=== PATIENT | male | born 1975 | race Caucasian/White ===

== ENCOUNTER → 2024-10-31 16:53 | Outpatient (REF) | payer OTHER, SELFPAY | LOC: RAD 16:53 | PROVIDERS: ATTENDING PHYSICIAN Thoracic Surgery (Cardiothoracic Vascular Surgery); FAMILY PHYSICIAN Family Medicine | DX: I35.0 Nonrheumatic aortic (valve) stenosis (principal); Z01.818 Encounter for other preprocedural examination | CPT/HCPCS: 75573; Q9967 ==

== ENCOUNTER 2024-11-25 07:49 | Day surgery (SDC) | payer OTHER, SELFPAY ==
[2024-11-25] VITALS (9 sets, daily range): BP systolic 134–160; BP diastolic 89–102; BMI 33.6
--- NOTE | 2024-11-25 10:04 | ITS.CL.PN ---
Case Consultant - Procedure Note
Procedure
Procedure Note:
CARDIAC CATHETERIZATION REPORT
Date of Procedure: 11/25/24
Referring: Dr. Consuelo Chau MD
Indication: pre-operative assessment before cardiac surgery
PROCEDURE(S)
1. coronary angiography
ACCESS: 6F left radial artery (closure: radial band; note: right radial artery is occluded)
CATHETERS
1. 6F JR4
2. 6F JL4
MODERATE SEDATION: 25 minutes of moderate sedation was utilized. An independent medical services assistant was present to assist with and help manage the patient's level of consciousness and physiologic status.
CORONARY ANGIOGRAPHY
Dominance: right
LM: large, normal
LAD: large vessel giving rise to large D1/ramus, small D2, and moderate caliber D3. There is no CAD.
LCx: large vessel giving rise to a moderate caliber OM1, large OM2, and large LPL branch. There is no CAD.
RCA: large vessel giving rise to a small RPDA and small RPL branch. There is no CAD.
RADIATION: dose 424 mGy; DAP 35 Gy*cm2; fluoroscopy time 3.6 min
CONCLUSIONS
1. no coronary artery disease in a right dominant system
RECOMMENDATIONS
1. proceed with AVR/root replacement
2. primary prevention of CAD
Copy to: Dr. Costa Chau MD (cardiac surgeon)
Signed: Bartolo Valdivia MD, PhD
== END 2024-11-25 13:00 | disposition home or self-care (01) ==
LOC: CATH 07:49
PROVIDERS: ATTENDING PHYSICIAN Student in an Organized Health Care Education/Training Program; FAMILY PHYSICIAN Family Medicine; OTHER PHYSICIAN Internal Medicine Interventional Cardiology
DX: Z01.818 Encounter for other preprocedural examination (principal); I35.0 Nonrheumatic aortic (valve) stenosis; I10 Essential (primary) hypertension; G25.81 Restless legs syndrome
CPT/HCPCS: 99152; 99153; 93454; 93458; C1894; Q9967

== ENCOUNTER 2024-11-29 05:01 | Inpatient (IN) | payer OTHER, SELFPAY ==
[2024-11-18 08:32] VITALS: BMI 34.2
[2024-11-18 09:09] LABS: Hematocrit 40.8 % (39.0-52.0); Hemoglobin 14.4 g/dL (13.0-18.0); Mean Corp Hgb Conc. 35.3 g/dL (33.0-37.0); Mean Corpuscular Volume 88.9 fL (80.0-94.0); Nucleated Red Blood Cells % 0 % (-); Platelet Count 220 10^3/uL (130-400); Red Cell Dist. Width 11.9 % (11.5-14.5)
[2024-11-18 09:17] LABS: INR 1.00; PT 13.5 Sec (11.4-14.6)
[2024-11-18 09:46] LABS: ALT (SGPT) 34 U/L (0-50); AST (SGOT) 32 U/L (17-59); Albumin 4.6 g/dl (3.5-5.0); Alkaline Phosphatase 61 U/L (38-126); Blood Urea Nitrogen 18 mg/dl (9-20); Calcium 9.5 mg/dl (8.4-10.2); Carbon Dioxide 25 mmol/L (22-30); Chloride 103 mmol/L (98-107); Estimated Creatinine Clearance > 125 ml/min; Glucose 105 mg/dl (70-99); Potassium 4.4 mmol/L (3.5-5.1); Sodium 140 mmol/L (135-145); Total Protein 8.0 g/dl (6.3-8.2); eGFR > 60.00
[2024-11-18 09:56] LABS: Glycohemoglobin (HgbA1c) 5.2 % (4.0-5.6)
[2024-11-18 10:32] LABS: Urine Character Clear (Clear)
[2024-11-18 10:48] LABS: Urine Urothelial Cell 0-2 /LPF (FEW)
[2024-11-18 10:50] LABS: Urine Red Blood Cell 0-2 /HPF (0-2)
--- NOTE | 2024-11-18 11:13 | CM ---
spoke to pt in PAT's, we discussed preop AVR teaching including [place] restrictions. he is previndep, lives with his in a 2 story home with 10 steps to enter. he denies any dme's. he has the cardiac surgery educ book, soap and
instructions. he is agreeable to a f/u visit form the ct transitional care nurses after dc. plan is for AVR 11/29, cm role explained and all questions answered.
[2024-11-29 05:16] VITALS: BMI 32.6
[2024-11-29 05:17] VITALS: BP 151/103
[2024-11-29] MEDS: MAGNESIUM OXIDE 500 MG PO (05:24)
[2024-11-29] MEDS: PROTONIX 40 MG PO (05:24)
[2024-11-29] MEDS: BACTROBAN 2% OINTMENT 1 APPLIC NASAL ×2 (05:25→20:22)
[2024-11-29] MEDS: LOPRESSOR 25 MG PO (05:25)
--- NOTE | 2024-11-29 06:00 | PTCARENOTE ---
admitted pt into 2260. pt confirmed 2 CHG showers at home and NPO status since midnight. ABO obtained. VS completed. Admission questions and med rec completed. pt clipped and washed w/ CHG wipes. awating CVOR.
--- NOTE | 2024-11-29 06:40 | W.CVOR.SURPR ---
CVOR Surgeon Immed Pre Op
-
I have examined this patient prior to performance of the scheduled procedure.
The patient's condition is unchanged from the time of the dictated/written History and
Physical and the patient is able to undergo the scheduled procedure.
We had a long discussion to review valve types this morning. Shared decision making at this point was to pursue a mechanical valve.
Sternotomy AVR + Asc
--- NOTE | 2024-11-29 07:50 | CM ---
Reviewed chart. Mr. Dailey is in the operating room today. Prior to admission he resides with his spouse in a two story home with ten steps to enter. Prior to admission he was independent with ambulation and adls. He does not have any DME in the
home. He has a prescription plan. Medical work-up in progress. The discharge plan is toreturn home with his spouse with a home visit by the Transitional Care Nurse verses [facility] if indicated when medically stable.
[2024-11-29 07:54] LABS: ACT+ - POC 112 Seconds (82-134)
[2024-11-29 08:03] LABS: Urine Character Clear (Clear)
[2024-11-29 08:09] LABS: Urine Squamous Cell 0-2 /LPF (Few)
[2024-11-29 08:10] LABS: Urine Red Blood Cell 0-2 /HPF (0-2); Urine White Cell 0-2 /HPF (0-5)
[2024-11-29 08:35] LABS: ACT+ - POC 535 Seconds (82-134)
[2024-11-29 08:50] LABS: B.E. - POC 0.2 mmol/L; Glucose - POC 100 mg/dl (70-99); HCO3 - POC 25 mmol/L (21-28); Hematocrit - POC 35 % PCV (42-52); Hemodilution- POC No; Hemoglobin Calculated - POC 12.0; Ionized Calcium - POC 1.18 mmol/L (1.15-1.33); Lactate - POC 1.45 mmol/L (0.36-0.75); O2 Saturation %Calculated-POC 99.6 % (94-98); PCO2 - POC 42 mmHg (35-48); PO2 - POC 185 mmHg (83-108); POC Comment PRE; Potassium - POC 3.8 mmol/L (3.5-5.1); Sodium - POC 141 mmol/L (136-145); Specimen Type - POC Arterial; pH - POC 7.39 (7.35-7.45)
[2024-11-29 09:01] LABS: ACT+ - POC 549 Seconds (82-134)
[2024-11-29 09:30] LABS: B.E. - POC 4.6 mmol/L; Glucose - POC 113 mg/dl (70-99); HCO3 - POC 30 mmol/L (21-28); Hematocrit - POC 27 % PCV (42-52); Hemodilution- POC Yes; Hemoglobin Calculated - POC 9.2; Ionized Calcium - POC 1.05 mmol/L (1.15-1.33); Lactate - POC 1.21 mmol/L (0.36-0.75); O2 Saturation %Calculated-POC 100.0 % (94-98); PCO2 - POC 48 mmHg (35-48); PO2 - POC 412 mmHg (83-108); POC Comment CPB A; Potassium - POC 4.6 mmol/L (3.5-5.1); Sodium - POC 141 mmol/L (136-145); Specimen Type - POC Arterial; pH - POC 7.40 (7.35-7.45)
[2024-11-29 09:42] LABS: ACT+ - POC 496 Seconds (82-134)
[2024-11-29] MEDS: ANCEF 10 IV ×2 (10:00→13:23)
[2024-11-29 10:06] LABS: B.E. - POC 2.9 mmol/L; Glucose - POC 185 mg/dl (70-99); HCO3 - POC 29 mmol/L (21-28); Hematocrit - POC 35 % PCV (42-52); Hemodilution- POC Yes; Hemoglobin Calculated - POC 11.7; Ionized Calcium - POC 1.10 mmol/L (1.15-1.33); Lactate - POC 1.41 mmol/L (0.36-0.75); O2 Saturation %Calculated-POC 99.9 % (94-98); PCO2 - POC 49 mmHg (35-48); PO2 - POC 279 mmHg (83-108); POC Comment WARM; Potassium - POC 4.9 mmol/L (3.5-5.1); Sodium - POC 142 mmol/L (136-145); Specimen Type - POC Arterial; pH - POC 7.38 (7.35-7.45)
[2024-11-29 10:09] LABS: ACT+ - POC 109 Seconds (82-134)
--- NOTE | 2024-11-29 10:16 | W.PN.CD ---
Addendum entered and electronically signed by Stephen Lee MD 11/29/24 13:20:
Patient seen and examined in collaboration with COMMERCIAL LOAN COLLECTION OFFICER; agree with below.
- Stable status-post mechanical AVR and ascending aorta replacement today.
- child monitor.
- Postsurgical care as per CT Surgery.
- Will follow.
Original Note:
Today's Communication / Plan
-
Follow telemetry
Postoperative management per CT surgery
Impression / Plan
-
I/P: 48M with bicuspid aortic valve with AI, hypertension, & lumbar disc disease presents for sternotomy AVR with ascending aortic replacement
Outpatient radiology assistant: Dr. Mark Russo
Bicuspid aortic valve with severe aortic stenosis and ascending aorta 4.5 cm s/p SAVR [25 mm mechanical aortic valve] & AscAo replacement [30 mm straight tube graft] by Dr. Chau 11/29/2024
- Pre-LVEF 65%, post LVEF hyperdynamic at 65-70% without RWMA
- Post MG 11 mmHg
- No inotropes, no products
- Postop EKG sinus bradycardia, rate 58
- In sinus rhythm, follow telemetry
- Antibiotic prophylaxis education prior to discharge
Hypertension
- Follow in the postoperative setting, he was not on any agents preoperatively
Fasting hyperglycemia, HgbA1c 5.2%
SUBJECTIVE:
Intubated and sedated. Operative report reviewed.
DATA:
Transthoracic echocardiogram, 10/19/2024:
Suboptimal due to poor acoustic windows overall, there is normal left
ventricular systolic function with an ejection fraction of 60 to 65% with grade
1 diastolic dysfunction. Normal chamber sizes. Aortic valve is thickened,
calcified and restricted appears bicuspid with a mean gradient of 55.8 mmHg and
a peak gradient of 73.5 mmHg with a calculated aortic valve area 0.72 cm sq.
These findings are consistent with severe aortic stenosis. There is no aortic
regurgitation. There is trace mitral and tricuspid regurgitation. No
pulmonary hypertension. No pericardial effusion.
Cardiac catheterizationn 11/22/2024:
1. No coronary artery disease in a right dominant system.
Physical Exam
Vital Signs/Labs
Vital Signs
Temp Pulse Resp BP Pulse Ox
98.9 F 85 20 151/103 97
11/29/24 05:17 11/29/24 05:17 11/29/24 05:17 11/29/24 05:17 11/29/24 05:17
11/28/24 11/29/24 11/30/24
06:59 06:59 06:59
Actual Weight 108.9 kg
PT 13.5 Sec (11.4-14.6) 11/18/24 08:59
INR 1.00 11/18/24 08:59
Physical Exam
Constitutional: No acute distress and Comfortable
EENT: Anicteric and Moist mucous membranes
Cardiovascular: Rhythm & rate is regular, Pedal edema is absent and S1S2 is normal
Respiratory: Lungs clear to auscul. and Other (ETT to mechanical ventilator)
GI: Soft and Distention absent
Neuro/Psych: Other (Sedated)
Other: Skin (Warm and dry)
Data Reviewed
-
Date of Service: November 29, 2024
EKG: Report Reviewed by me
Medical Tests (PFT, Pathology etc): Report Reviewed by me
Labs: Labs Reviewed by me
Old Records: Reviewed
--- NOTE | 2024-11-29 10:35 | W.PN.CT.SURG ---
CT Surgery Operative Note
-
CARDIAC SURGERY OPERATIVE REPORT
Preoperative Diagnosis: Aortic valve stenosis with bicuspid morphology and associated aortic aneurysm of the ascending thoracic aorta
Postoperative Diagnosis: Same
Procedure(s) Performed:
1. Standard sternotomy with aortic and right atrial cannulation
2. Surgical aortic valve replacement [25 mm mechanical aortic valve]
3. Ascending aortic replacement [30 mm straight tube graft]
4. Transesophageal echocardiography
5. Placement of temporary ventricular pacing wire
Date of Surgery: 11/29/24
Comorbidities:
1. Bicuspid aortic valve morphology, type II
2. Severe aortic valve stenosis, symptomatic
3. Associated ascending aortic aneurysm, without rupture
4. Hypertension
5. Restless leg syndrome
Attending Surgeon: Costa Chau MD, MS
Assistants: Gerri Gutiérrez PA-C (present and necessary to automobile mechanic assistant, retraction, suction, exposure, suture management, and wound closure under my direction)
Anesthesiology: Charly Dos Santos MD and Stas Lawson CRNA
Scrub and Circulating RNs: Francis Valadez RN, Kaela Sherman RN
Transportation Security Officer: Thomas Lopez CCP
Anesthesia: GETA
EBL: per perfusion records
Products: None
CPB Time: 78 minutes
Aortic Cross Clamp Time: 64 minutes
Indication(s) for Procedures: This is a 49-year-old male with a history of bicuspid aortic valve morphology was recently found to have severe aortic valve stenosis. He was also found to have an associated ascending aortic aneurysm measuring 4.5 cm.
Given the severity and elevated gradients to approximately 55 across his aortic valve, we discussed surgical intervention. He opted to move forward with SAVR and ascending aortic replacement. His valve choice on the day of surgery was mechanical
prosthesis.
Aortic Valve Description: Type II, left right fusion, left and right coronary ostia normal anatomic positions and high up in the sinuses. Most of the calcification was towards the right left raphae that was very bulky.
Findings: His left ventricular ejection fraction preoperatively was normal at 65%. He had some diastolic dysfunction mild to moderate degree of left ventricular hypertrophy as expected. Following surgery he was hyperdynamic with an EF of
approximately 65 to 70% with no new regional wall motion abnormalities. His aortic valve is heavily calcified and a type II bicuspid morphology with left and right coronary cusp fusion. He was debrided accordingly and then sized to a 25 mm
mechanical prosthesis. A total of 14 nonpledgeted 2 Ethibond sutures were placed circumferentially from LVOT through annulus through sewing cuff of the prosthesis. It was then parachuted into place and the valve leaflets were oriented in anatomic
position that was perpendicular to the aorta mitral curtain. I then verified that the leaflets were moving freely and unobstructedly and the annular sutures were then secured to place using core knots. I then used a [employer] sizer to size the STJ
to the [place] aorta. A 30 mm straight tube graft was then chosen. The proximal end was sewn first using bovine pericardium as a gasket and then sealed with a absorbable biological glue. Next I then trimmed the graft as well as the [place] aorta
until a point that it was tapered down. The distal anastomosis was again performed with 4-0 Prolene in a running fashion using bovine pericardium as a gasket and then sealed again with biological absorbable glue. At the conclusion of the case
there was a mean gradient of 11 across mechanical prosthesis values hyperdynamic with a cardiac index of over 2.5. He did not require any inotropic support, I did not require any blood products, and he was in his [place] sinus rhythm in the 50s.
ASHLEY revealed that the valve leaflets are moving unobstructedly and the washing jets within normal anatomic positions on the device. There is no obvious paravalvular leak.
Specimen(s): Aortic valve leaflets, ascending aortic aneurysm.
Prosthesis:
1. 25 mm On-X mechanical aortic valve, serial number [id number]
2. 30 mm Hemashield [place] ira straight tube graft, serial #[id number]
3. Single gold X plate with 4 x 16 mm screws
Description of Procedure: The patient was taken to the operating room. Their identity and procedure to be performed were verified and they were positioned supine on the operating table. Induction via general anesthesia with endotracheal intubation
was performed and central venous access and arterial monitoring were inserted. A preoperative transesophageal echocardiogram was performed to assess cardiac function and valvular function. The patient was then prepped and draped from chin to feet in
a sterile fashion. A preoperative time-out was performed with all members of the team present. A midline chest incision was performed along with median sternotomy. The innominate vein was isolated. Full heparinization was given (a total of 55,000
units). We created a pericardial well. The aortic cannulation site was chosen where it was soft, pliable, and free of calcium. Cannulation was performed with an arterial cannula in the ascending aorta and a triple-stage venous cannula through the
right atrial appendage. The arterial cannula line had an appropriate bounce and correlating pressures with test dosing. Next, a root vent/antegrade cannula was inserted into the ascending aorta. The ACT was confirmed to be over 400 and retrograde
autologous priming was performed before commencing cardiopulmonary bypass. The pulmonary artery was away from the aorta to facilitate a clamp site and aortotomy. A left ventricular vent was placed at the right superior pulmonary vein and
secured. The aortic cross-clamp was placed after decreasing the flow on the bypass and mean arterial pressure. A total of 1.2L initial dose of antegrade Del-Nido cardioplegia solution was given and planned for re-dosing every 75 minutes as
necessary. There was rapid electro-mechanical arrest of the heart at 3 cc of cardioplegia. The left ventricle was observed for distention on echocardiogram and manual palpation. Cold slush was placed into a sponge and topically on the RV while we
systemically cooled to 34 degrees centigrade.
Carbon dioxide was used to flood the field. We manually identified the location of the right coronary take off. An aortotomy was made approximately 2cm above the sinotubular junction. The location of both left and right coronary vessels were
visualized in the root.I then fully transected the aorta and placed a stay suture to keep it out of the way. Additional stay sutures were placed at the commissures. The leaflets were excised and sent for pathological assessment. The annulus was
debrided of any calcium being mindful of the annulus and membranous septum. The root and left ventricular outflow tract were thoroughly irrigated to remove any debris. A total of 14 non-pledgeted 2-0 ethibond inverted annular sutures were placed
[id number] circumferentially. These were brought through the sewing cuff of the prosthetic valve which as then parachuted into place. The left and right coronary ostia were visualized and were unobstructed by the valve. I then used a plastic
inside sales director order to make sure the leaflets moved and rotated to the leaflets were oriented perpendicular to the aorta mitral curtain. A Cor-Knot device was used to secure the annular sutures. The valve was inspected and was well seated. The
ascending aortic was then trimmed and then sized at the STJ to a 30 mm graft. The proximal anastomosis was performed with 4-0 Prolene in a running fashion using bovine pericardium as a gasket. Additional hemostatic agent was placed over top of the
suture line. Next I beveled the graft and the [place] aorta accordingly and the distal anastomosis was performed with a single running layer of 4-0 Prolene using bovine pericardium as a gasket. Additional hemostatic agents were placed over top of
the suture lines. An 18-gauge needle was used to gently puncture the graft and the area maneuvers were performed by filling the heart and inflating the lungs. Temporary bipolar ventricular pacing wires were placed on the base of the right
ventricle. The patient was placed in a Trendelenburg position and flows on bypass were lowered. The aortic cross clamp was removed and flows were slowly brought back up. The aortotomy appeared hemostatic. Transesophageal echocardiography revealed
no paravalvular leak and appropriate prosthetic function. Once de-airing was satisfactory, the left ventricular and root vents were removed. After verifying acceptable parameters, we initiated weaning from cardiopulmonary bypass. Once we were off
cardiopulmonary bypass, the venous cannula was clamped and removed. A test dose of protamine was administered and the patient was monitored for any adverse reaction before resuming protamine. Once half of the protamine dose was delivered, pump
suckers were turned off and the systolic blood pressure was lowered for aortic decannulation. The aortic cannula was removed and pursestrings were tied down. All cannulation sites were oversewn with a 4-0 prolene. The aortotomy suture line was
inspected and hemostasis was confirmed. Mediastinal hemostasis was obtained. Two 24Fr Inderjit drains were placed within the pericardium. The sternum was approximated with 4#7 single and 3 #8 double stainless steel wires. A single gold plate was used
to reinforce the manubrial sternal junction. Fascia was approximated with #1 vicryl suture. The subcutaneous, dermis and epidermis were closed in layers in a running fashion. The skin wound was cleansed and dressed.
All instrument, sponge, and needle counts were confirmed to be correct x 2 at the end of the operation. The patient was transferred to the cardiac intensive care unit in critical but stable condition.
I, Dr. Costa Chau, was present, scrubbed for, and performed all critical elements of this procedure.
Costa Chau MD, MS
Cardiothoracic Surgeon
[facility]
This operative dictation was created using the [employer] dictation system. Please excuse any grammatical, typographical, or 'sound alike' errors
[2024-11-29 10:38] LABS: B.E. - POC 0.3 mmol/L; Glucose - POC 138 mg/dl (70-99); HCO3 - POC 25 mmol/L (21-28); Hematocrit - POC 32 % PCV (42-52); Hemodilution- POC Yes; Hemoglobin Calculated - POC 11.0; Ionized Calcium - POC 1.26 mmol/L (1.15-1.33); Lactate - POC 2.39 mmol/L (0.36-0.75); O2 Saturation %Calculated-POC 99.2 % (94-98); PCO2 - POC 40 mmHg (35-48); PO2 - POC 143 mmHg (83-108); POC Comment POST; Potassium - POC 3.9 mmol/L (3.5-5.1); Sodium - POC 141 mmol/L (136-145); Specimen Type - POC Arterial; pH - POC 7.40 (7.35-7.45)
--- NOTE | 2024-11-29 11:00 | PTCARENOTE ---
received patient from cvor, sedated and placed on vent by PERSONNEL COUNSELOR.out with usual lines, CTx2 to -20 wall suction. draining red. no air leaks/crepitus. L brachial A line. #8ETT @24 R lip. pulse ox 96%. weaned fio2 to 60% upon arrival by PERSONNEL COUNSELOR. Out on
cardene precedex and insulin per glycemic protocol. labs drawn and sent. ekg and cxr done. wrapped in warm blankets. updated by Dr Chau. WAI RODRIGUEZ with surgical glue approximated. will continue to monitor.
[2024-11-29 11:09] LABS: Glucose - Point of Care 113 mg/dl (70-99)
[2024-11-29 11:13] LABS: Hematocrit 32.1 % (39.0-52.0); Hemoglobin 11.5 g/dL (13.0-18.0); Platelet Count 198 10^3/uL (130-400)
[2024-11-29 11:15] LABS: B.E. -2.7 mmol/L; HCO3 24.1 mmol/L (21-28); O2 Saturation % 97.0 % (94-98); PCO2 49 mmHg (35-48); PO2 83 mmHg (83-108); Potassium 4.1 mMOL/L (3.5-5.1); Sodium 137 mMOL/L (136-145)
[2024-11-29 11:21] LABS: INR 1.21; PT 15.6 Sec (11.4-14.6)
[2024-11-29 11:22] LABS: APTT 23.4 Sec (23.4-35.0)
[2024-11-29 11:26] LABS: Blood Urea Nitrogen 16 mg/dl (9-20); Estimated Creatinine Clearance > 125 ml/min; Glucose 107 mg/dl (70-99); Magnesium 2.9 mg/dl (1.6-2.3)
--- NOTE | 2024-11-29 11:35 | W.PN.UPDATE ---
Update Note
Progress Note Update
IV fluids: 1600 mL
Crystalloid:� 1200 mL
U.O.:� 550 mL
UF:� 1650 mL
Blood:� None
Wires:� epicardial v-wires - back-up
Inotropes:� none
Pressors:� none
Sedatives:� Precedex at 0.6
�
NEURO: sedated on Precedex, pupils +2 mm B/L
RESP: #8OT @21 cm> 500/60%/14/5. Lungs clear B/L. 2 mediastinal (5 cc on arrival) to -20cm suction without air leak/crepitus. Sanguineous drainage
CV: RRR +S1, S2, no S3, no�rub, no murmur. Dermabond to median sternotomy. RIJ w/[place] locked @ 50 cm. PA 39/23, CVP 20; C.O 4.73/CI 2.1
ABD: round, soft, no BS
EXT: no edema, +2/4 DP pulses B/L, R brachial A-line intact, L wrist ecchymotic/soft/cap refill < 3 sec
: Lovelace with clear yellow urine
�
A/P:
# Aortic stenosis with bicuspid morphology and thoracic ascending aortic aneurysm without rupture
POD #0 s/p AVR (25 mm On-X mechanical) with ascending aortic root replacement (30 mm Hemashield)
ASHLEY: EF�normal
- Maintain SBP to goal of 90-110 mmHg
- Anticipate discontinuation of brachial arterial line if correlating to non-invasive BP
- Plan to initiate Coumadin on evening of POD 1
- wean and extubate
- will need instruction regarding antibiotic prophylaxis for dental and invasive procedures
�
# acute surgical blood loss anemia-expected
- H/H 11.5/40.8 from 14.4/32.1 pre-op
- Ferric Gluconate x 3 doses ordered
- Repeat H/H w Plt in 4-hours, con't to trend CBC
�
# Left wrist hematoma
- suspect hematoma secondary to LHC 11/25/24 via L radial artery
- cap refill < 3 sec
- Continue to monitor in postoperative setting
- if progression or symptoms associated develop, consider vascular consultation
# Hypertension
- Noted PMHx of HTN, not on medicinal regiment
- currently on nicardipine gtt in post-operative setting
- Introduction of BB postoperatively
- Goal SBP 90-110 mmHg immediate post-op
[2024-11-29 12:08] LABS: Glucose - Point of Care 144 mg/dl (70-99)
--- NOTE | 2024-11-29 12:54 | CON.INTV ---
Consultation
Consultation Request
Date/Time Consultation Requested: 11/29/2024
Date/Time Consultation Performed: 11/29/2024
Medical History
-
History of Present Illness:
Patient is a 48 y/o male with known h/o and Ascending aortic aneurysm who was evaluated in the CT surgery clinic for worsening Aortic stenosis. Patient was admitted to the hospital 11/29 for surgical AV replacement and post procedure, was
admitted to CVICU. Car Wash Supervisor consult was requested for further input.
Past medical history. Severe aortic stenosis, hypertension, restless leg syndrome, inguinal hernia, back pain.
Past surgical history. Back surgery, hernia surgery.
Family history. History of coronary artery disease in father, no history of cancer reported.
Social history. Does not smoke. No reported history of marijuana, vaping or e-cigarettes
Allergies / Home Medications
Allergies
Allergy/AdvReac Type Severity Reaction Status Date / Time
fentanyl Allergy Hives Verified 11/16/24 13:38
latex Allergy Hives Verified 11/16/24 13:39
Home Medications
�Medication �Instructions �Recorded �Confirmed �Last Taken �Type
acetaminophen 300 mg-codeine 30 mg 1 tab PO PRN PRN Pain 11/16/24 11/29/24 11/25/24 08:00 History
tablet
etodolac 400 mg tablet 400 mg PO Q12H PRN pain 11/16/24 11/29/24 3 Days Ago History
~11/22/24
magnesium 1 tab PO DAILY 11/16/24 11/29/24 11/26/24 08:00 History
vitamin T35-[id number] acid 1 tab PO DAILY 11/16/24 11/29/24 11/23/24 21:00 History
Review of Systems
-
Hematologic/Lymphatic: Other (Patient just extubated, still a bit drowsy, does not report any discomfort)
Vitals / Labs / Diagnostic Testing
Vital Signs
Temp Pulse Resp BP Pulse Ox
97.3 F 62 16 151/103 96
11/29/24 12:00 11/29/24 12:30 11/29/24 12:30 11/29/24 05:17 11/29/24 12:38
Lab Data
11/29/24 14:30
11/29/24 10:59
Laboratory Results
11/29/24
10:59
PT 15.6 H
INR 1.21
APTT 23.4
pH 7.30 L
pCO2 49 H
pO2 83
HCO3 24.1
O2 Delivery Level
Diagnostic Testing:
Physical Exam
-
HEENT: Normocephalic
Cardiovascular: S1/S2
Respiratory: Clear
GI: Soft and Non Distended
Neurology: Other (Drowsy, extubated minutes ago, wakes up with little stimulation)
Skin: Warm
General: Comfortable
Assessment
-
48-year-old gentleman with severe bicuspid aortic valve stenosis and ascending aortic aneurysm, s/p surgical aortic valve replacement, mechanical, ascending aortic root replacement, POD # 0
Titrated off pressors per protocol, currently on nicardipine infusion at 2.5, MAP of 71
ECHO reviewed with normal EF
PA catheter readings reviewed, 39 x 22, mean 28
Management of chest tubes per primary service, serosanguineous drainage noted, no airleak
Patient extubated to nasal cannula, currently saturating 96% on 4 L
ABG(s) reviewed: .
CXR with no obvious opacities/infiltrates, chest tubes in place
Maintain supplement oxygen as needed
No prior history of pulmonary disease, no h/o smoking
Can add nebulizers if needed
Aspiration precautions
Encouraged incentive spirometry, OOB/ambulation/early mobility
Advance diet as tolerated following extubation
GI prophylaxis: Protonix
SCDs for DVT prophylaxis
Monitor critical I/O's
Lovelace/chest tube output
Hb/platelets postoperatively slight drift. 14.1 > 11.5
Trend CBC for now
Can transfuse if indicated for Hb <7, plt <50 in surgical patients
DVT prophylaxis including SCDs
Insulin protocol initiated and ongoing
Transition to SQ/off as indicated per team
Other medical diagnoses:
- Small area of tree-in-bud nodularity in RUL. Asymptomatic. Can be pursue further as out patient. Pulmonary follow up information left in the chart.
Critical Care time 62 mins -- The patient is admitted for acute critical illness for the treatment of vital organ failure and/or prevention of further life-threatening conditions. Total care includes time spent in review of history, physical exam,
medications, hemodynamic/ventilator parameters, laboratory data, imaging and discussion with house staff, pharmacy, respiratory therapy, organization development consultant, and nursing.
Data:
LHC 11/2024: No CAD in right dominant system.
ECHO 10/2024: Suboptimal due to poor acoustic windows overall, there is normal left
ventricular systolic function with an ejection fraction of 60 to 65% with grade
1 diastolic dysfunction. Normal chamber sizes. Aortic valve is thickened,
calcified and restricted appears bicuspid with a mean gradient of 55.8 mmHg and
a peak gradient of 73.5 mmHg with a calculated aortic valve area 0.72 cm sq.
These findings are consistent with severe aortic stenosis. There is no aortic
regurgitation. There is trace mitral and tricuspid regurgitation. No
pulmonary hypertension. No pericardial effusion.
Cardiac CT 10/2024: Measurements for proposed SAVR procedure, to be added as a separate addendum.
Fusiform aneurysmal dilatation of the ascending thoracic aorta measuring up to 4.5 cm.
Minimal focal infectious/inflammatory bronchiolitis change in the right upper lobe. No dedicated imaging follow-up indicated.
[2024-11-29 13:04] LABS: Glucose - Point of Care 132 mg/dl (70-99)
[2024-11-29 13:10] LABS: B.E. -1.3 mmol/L; HCO3 24.3 mmol/L (21-28); O2 Saturation % 100.0 % (94-98); PCO2 43 mmHg (35-48); PO2 122 mmHg (83-108); Potassium 4.0 mMOL/L (3.5-5.1)
[2024-11-29 13:11] LABS: Hematocrit 34.4 % (39.0-52.0); Hemoglobin 12.4 g/dL (13.0-18.0); Platelet Count 202 10^3/uL (130-400)
--- NOTE | 2024-11-29 13:20 | RESPNOTE ---
Pateint extubated to a 6L nasal cannula following cpap trial and abg. Incentive spirometry reinstruction completed.
--- NOTE | 2024-11-29 13:22 | PTCARENOTE ---
extubated to 6Lnc with JUDICIAL ADMINISTRATIVE ASSISTANT. 96% pulse ox. IS reached 750
[2024-11-29] MEDS: NEURONTIN PO (13:23)
[2024-11-29] MEDS: TYLENOL PO (13:24)
[2024-11-29] MEDS: NSS 500 IV (13:24)
[2024-11-29] MEDS: DILAUDID 0.25 MG IV ×2 (13:37→18:50)
[2024-11-29 14:17] LABS: Glucose - Point of Care 129 mg/dl (70-99)
[2024-11-29 15:00] LABS: Glucose - Point of Care 117 mg/dl (70-99)
[2024-11-29] MEDS: NEURONTIN 100 MG PO ×2 (15:30→21:41)
[2024-11-29] MEDS: LOW STRENGTH ASPIRIN 81 MG PO (15:40)
[2024-11-29] MEDS: ROXICODONE 5 MG PO (15:40)
[2024-11-29] MEDS: PACERONE 200 MG PO ×2 (15:40→21:41)
[2024-11-29 16:17] LABS: Glucose - Point of Care 101 mg/dl (70-99)
--- NOTE | 2024-11-29 18:00 | PTCARENOTE ---
VSS. weaned to 2L nc. see MAR for pain medication administration. IS 500-750. Family updated at bedside.
[2024-11-29 18:42] LABS: Glucose - Point of Care 128 mg/dl (70-99)
[2024-11-29] MEDS: ANCEF 5 IV (18:49)
[2024-11-29 19:43] VITALS: BP 117/60
[2024-11-29 20:00] VITALS: BP 119/67
--- NOTE | 2024-11-29 20:00 | PTCARENOTE ---
Assumed care of patient at 1900. Patient found resting in bed at time of assessment with family at bedside. Patient is AOx4, follows commands appropriately, moves all extremities. Lung sounds are diminished in the bases, saO2 95% on 2L, CTx2:
2xsmeds draining red sanguineous to one atrium. Heart sounds are audible, +click, weak radial pulses, normal palpable DP pulses and no observable edema. V wire is present but wire is insulated. Patient has hypoactive BS in all four quadrants and
there is azevedo draining clear yellow urine. 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 Patient has a R IJ cordis with swan @50cm, R brachial
jessica, and L hand PIV. There is an insulin gtt infusing col 2 as well as Cordis/VIP KVO. Patient given 0.25 dilaudid at change of shift for pain. Call dubon within reach.
[2024-11-29] MEDS: SENOKOT-S 1 TABLET PO (20:22)
[2024-11-29 20:42] LABS: Glucose - Point of Care 114 mg/dl (70-99)
[2024-11-29 21:00] VITALS: BP 126/63
[2024-11-29] MEDS: NITROGLYCERIN PREMIX 250 IV (21:33)
[2024-11-29] MEDS: TYLENOL 1000 MG PO (21:41)
[2024-11-29 22:00] VITALS: BP 118/52
--- NOTE | 2024-11-29 22:00 | PTCARENOTE ---
Patient somewhat hypertensive SBP in 130s with goal SBP<110. Started on cardene at 1999 without much response from patient BP continued to rise into 140s. Switched to nitro gtt at 2099 with much better response from patient. SBP currently 113.
Titrating according to protocol.
[2024-11-29] MEDS: ZOFRAN 4 MG IV (22:25)
[2024-11-29 22:34] LABS: Glucose - Point of Care 102 mg/dl (70-99)
[2024-11-29 23:00] VITALS: BP 124/56
[2024-11-30] VITALS (16 sets, daily range): BP systolic 106–139; BP diastolic 54–80; PULSE 74; O2SAT 94–98; BMI 33.1
--- NOTE | 2024-11-30 | PTCARENOTE ---
Patient reassessed. Remains on nitro gtt for hypertension titrated up to 60 which is max dose per order. [id number]. At approx 2200 patient became nauseous without emesis given one dose of zofran. Desatting to 88-89% at HS increased O2 to 4L. Call
dubon within reach remains in SR.
[2024-11-30] MEDS: LR 250 ML IV (00:27)
[2024-11-30 00:43] LABS: Glucose - Point of Care 108 mg/dl (70-99)
[2024-11-30 02:35] LABS: Glucose - Point of Care 107 mg/dl (70-99)
--- NOTE | 2024-11-30 03:02 | W.PN.CT ---
Today's Communication / Plan
-
-pod #1
-no issues overnight
-sbp 90-[address] Chau - liberate
-CI 2.66, CO 5.98. Drips: Nitro 65, Insulin
-CT outputs: 2 meds 145/315 in 12/24 hrs
-swan dcd
-wean off Nitro and d/c a-line
-d/c insulin
-d/c Lovelace
-current meds (ASA. Amio, Lopressor, iv Iron, Protonix). Plan is to start Coumadin for mechanical valve
-INR 1.10 today
-encourage IS, OOB
Assessment / Plan
-
- Severe symptomatic aortic valve stenosis- s/p Surgical aortic valve replacement [25 mm On-X mechanical aortic valve]; Ascending aortic replacement [30 mm Hemashield [place] straight tube graft] by Dr. Chau on 11/29/24, pod #1
- Bicuspid aortic valve morphology, type II
- Associated ascending aortic aneurysm 4.5 cm, without rupture
- Hypertension
- Restless leg syndrome
- Acute postop blood loss anemia - stable, no transfusions
- Acute postop pulmonary insufficiency/atelectasis
- Acute postop hypovolemia with subsequent hypervolemia
Discussed patient care with: Nursing and Care Team
Subjective
-
Date of Service: November 30, 2024
Objective Data
-
PT 15.6 Sec (11.4-14.6) H 11/29/24 10:59
INR 1.21 11/29/24 10:59
APTT 23.4 Sec (23.4-35.0) 11/29/24 10:59
Vital Signs
Vital Signs
Temp Pulse Resp BP Pulse Ox
99.2 F 81 19 124/54 94
11/30/24 02:05 11/30/24 01:00 11/30/24 01:00 11/30/24 01:00 11/30/24 01:00
CT Intake/Output/Weight
11/29/24 11/29/24 11/30/24
06:59 18:59 06:59
Intake Total 348.8 / 689.0 340.2 / 689.0
Output Total 780 / 1110 330 / 1110
Balance -431.2 / -421.0 10.2 / -421.0
SaO2: 94
Physical Exam
-
General: Awake and AOx3
Cardiovascular: Regular rate & rhythm, No Murmurs and No Rub
Respiratory: Decreased Breath Sounds
Sternum: Stable
Incision: Clean, Dry and Intact
Extremities: No Edema (1+ DPs b/l)
Abdomen : soft, nontender, nondistended, + decreased bowel sounds
Data Reviewed
-
Lab Results: Results Reviewed
Medications: Active Meds Reviewed
Chest X-Ray: Report Reviewed and Image Reviewed
ECG: Report Reviewed and Image Reviewed
[2024-11-30] MEDS: ANCEF 5 IV ×2 (03:04→10:17)
[2024-11-30] MEDS: ROXICODONE 5 MG PO ×3 (03:18→20:13)
[2024-11-30 03:24] LABS: Hematocrit 30.7 % (39.0-52.0); Hemoglobin 11.0 g/dL (13.0-18.0); Mean Corp Hgb Conc. 35.8 g/dL (33.0-37.0); Mean Corpuscular Volume 88.7 fL (80.0-94.0); Platelet Count 228 10^3/uL (130-400); Red Cell Dist. Width 12.0 % (11.5-14.5)
[2024-11-30 03:34] LABS: INR 1.10; PT 14.5 Sec (11.4-14.6)
[2024-11-30 03:54] LABS: Blood Urea Nitrogen 24 mg/dl (9-20); Calcium 8.5 mg/dl (8.4-10.2); Carbon Dioxide 23 mmol/L (22-30); Chloride 108 mmol/L (98-107); Estimated Creatinine Clearance > 125 ml/min; Glucose 102 mg/dl (70-99); Magnesium 2.2 mg/dl (1.6-2.3); Potassium 4.4 mmol/L (3.5-5.1); Sodium 136 mmol/L (135-145); eGFR > 60.00
[2024-11-30] MEDS: DILAUDID 0.25 MG IV (04:00)
[2024-11-30 04:37] LABS: Glucose - Point of Care 97 mg/dl (70-99)
[2024-11-30] MEDS: TYLENOL 1000 MG PO ×3 (05:56→22:04)
[2024-11-30] MEDS: LOPRESSOR 12.5 MG PO ×2 (05:56→08:20)
[2024-11-30] MEDS: FLEXERIL 5 MG PO (06:35)
[2024-11-30 06:45] LABS: Glucose - Point of Care 116 mg/dl (70-99)
--- NOTE | 2024-11-30 06:48 | PTCARENOTE ---
Patient reassessed. AM labs obtained. AM EKG obtained. Remains on 60 nitro. Given isa 5 and dilaudid 0.25 for pain management provided some relief. Rob marin. Mona to remain in place. Given 12.5 lopressor early. OOB to chair without incident.
Given flexeril for muscular discomfort. O2 weaned to 2L. AM hygiene care provided. [place] removed DTV 1205.
--- NOTE | 2024-11-30 07:42 | W.PN.ANS.POP ---
Anesthesia Post Operative
- Anesthesia Post Op Note
Vital Signs Stable-See Nursing Note: Yes
Airway Patent: Yes
Adequate Pain Control: Yes
Change in Mental Status: No
Current Postoperative Nausea & Vomiting: No
Anesthesia Complications: No
General Anesthetic Recall: No
Unplanned Admission: Yes
Post Op Hydration Adequate: Yes
- -
Pt awake and alert- OOB to chair, VSS, no n/v and no anesthesia related c/o at time of post op visit.
[2024-11-30] MEDS: PROTONIX 40 MG PO (08:13)
[2024-11-30] MEDS: NEURONTIN 100 MG PO ×3 (08:13→22:04)
[2024-11-30] MEDS: FEOSOL 325 MG PO (08:13)
--- NOTE | 2024-11-30 08:13 | W.PN.INTV ---
Today's Communication / Plan
Recommendations
- Wean insulin per protocol
- Incentive spirometry, increase activity as tolerated
- Kindergarten Classroom Teacher service will sign off once patient is transferred out of CVICU
Assessment
-
48-year-old gentleman with severe bicuspid aortic valve stenosis and ascending aortic aneurysm, s/p surgical aortic valve replacement, mechanical, ascending aortic root replacement, POD # 1
Titrated off pressors per protocol, currently on nitroglycerin infusion, MAP of 71
ECHO reviewed with normal EF
PA catheter removed
Management of chest tubes per primary service, serosanguineous drainage noted, no airleak
Patient extubated to nasal cannula, currently saturating 94% on 2 L
CXR with no obvious opacities/infiltrates, chest tubes in place
Maintain supplement oxygen as needed
No prior history of pulmonary disease, no h/o smoking
Can add nebulizers if needed
Aspiration precautions
Encouraged incentive spirometry, OOB/ambulation/early mobility
Advance diet as tolerated following extubation
GI prophylaxis: Protonix
SCDs for DVT prophylaxis. Coumadin initiated
Monitor critical I/O's
Lovelace/chest tube output
Hb/platelets postoperatively slight drift. 14.1 > 11.5 > 11.0
Trend CBC for now
Can transfuse if indicated for Hb <7, plt <50 in surgical patients
DVT prophylaxis including SCDs
Insulin protocol initiated and ongoing
Transition to SQ/off as indicated per team
Other medical diagnoses:
- Small area of tree-in-bud nodularity in RUL. Asymptomatic. Can be pursue further as out patient. Pulmonary follow up information left in the chart.
Critical Care time 42 mins -- The patient is admitted for acute critical illness for the treatment of vital organ failure and/or prevention of further life-threatening conditions. Total care includes time spent in review of history, physical exam,
medications, hemodynamic/ventilator parameters, laboratory data, imaging and discussion with house staff, pharmacy, respiratory therapy, medical legal investigator, and nursing.
Data:
LHC 11/2024: No CAD in right dominant system.
ECHO 10/2024: Suboptimal due to poor acoustic windows overall, there is normal left
ventricular systolic function with an ejection fraction of 60 to 65% with grade
1 diastolic dysfunction. Normal chamber sizes. Aortic valve is thickened,
calcified and restricted appears bicuspid with a mean gradient of 55.8 mmHg and
a peak gradient of 73.5 mmHg with a calculated aortic valve area 0.72 cm sq.
These findings are consistent with severe aortic stenosis. There is no aortic
regurgitation. There is trace mitral and tricuspid regurgitation. No
pulmonary hypertension. No pericardial effusion.
Cardiac CT 10/2024: Measurements for proposed SAVR procedure, to be added as a separate addendum.
Fusiform aneurysmal dilatation of the ascending thoracic aorta measuring up to 4.5 cm.
Minimal focal infectious/inflammatory bronchiolitis change in the right upper lobe. No dedicated imaging follow-up indicated.
Subjective Dataa
Subjective Data
Date of Service:
Date of Service: November 30, 2024
Subjective:
Patient comfortably sitting in chair, in no acute distress.
Review of Systems
Genitourinary: Other (No new symptoms reported)
Objective Data
Data Reviewed
Vital Signs / I&O / Oxygen:
Vital Signs
Temp Pulse Resp BP Pulse Ox
99.4 F 91 21 109/66 96
11/30/24 05:00 11/30/24 06:30 11/30/24 06:15 11/30/24 06:10 11/30/24 07:55
Intake and Output
11/29/24 11/30/24 12/01/24
06:59 06:59 06:59
Intake Total 797.6 / 797.6
Output Total 1395 / 1420
Balance -597.4 / -622.4 -
SaO2 [P-SIMV] 95
SaO2 96
Nasal Cannula flow liters per 2
minute
Physical Exam
General: Comfortable
HEENT: Normocephalic
Cardiovascular: S1-S2
Respiratory: Clear and Non-Labored Respirations
GI: Soft and Non Distended
Neurology: Awake and Alert
Skin: Warm
Labs/Micro/Reports
Lab Data
11/30/24 03:11
11/30/24 03:11
Laboratory Results
11/29/24 11/29/24 11/30/24
10:59 12:59 03:11
PT 15.6 H 14.5
INR 1.21 1.10
APTT 23.4
pH 7.30 L 7.36
pCO2 49 H 43
pO2 83 122 H
HCO3 24.1 24.3
O2 Delivery Level
[2024-11-30] MEDS: KCL 20 MEQ PO (08:14)
[2024-11-30] MEDS: LOW STRENGTH ASPIRIN 81 MG PO (08:14)
[2024-11-30] MEDS: SENOKOT-S 1 TABLET PO ×2 (08:15→20:13)
[2024-11-30] MEDS: PACERONE 200 MG PO ×3 (08:16→22:04)
[2024-11-30] MEDS: VITAMIN C 500 MG PO (08:16)
[2024-11-30] MEDS: MAGNESIUM OXIDE 500 MG PO ×2 (08:16→20:12)
[2024-11-30] MEDS: LIDOCAINE 4% PATCH 1 PATCH TOPICAL (08:17)
[2024-11-30] MEDS: LASIX 40 MG IV (08:18)
[2024-11-30] MEDS: BACTROBAN 2% OINTMENT 1 APPLIC NASAL ×2 (08:21→20:14)
[2024-11-30 08:33] LABS: Glucose - Point of Care 108 mg/dl (70-99)
--- NOTE | 2024-11-30 08:52 | W.PN.CD ---
Today's Communication / Plan
-
Incentive spirometry.
Ambulate when appropriate.
Agree with furosemide.
Consider changing metoprolol to carvedilol for better PO control of BP.
Wean nitro gtt.
Pain control will be paramount.
Heparin gtt.
Warfarin. Initial INR goal of 2-3.
Impression / Plan
-
Impression/Plan: 48 y/o male with bicuspid aortic valve, aortic root/ascending aorta dilation with severe , hypertension, & lumbar disc disease admitted for elective SAVR and ascending aortic replacement.
Outpatient slurry worker: Dr. Mark Russo
#Bicuspid aortic valve with severe aortic stenosis
-Chronic, progressive, symptomatic.
-S/P SAVR (#25 On-X mechanical aortic valve, serial number [id number]) with Dr. Chau, 11/29/2024.
-Routine post operative care.
-Nitroglycerin gtt for BP control, goal SBP < 110 mmHg.
-Incentive spirometry.
-Ambulate when appropriate.
-Consider changing metoprolol to carvedilol to assist with BP control.
-Pain/chest tube management per CT surgery.
-Antibiotic prophylaxis education prior to discharge.
-Warfarin at CT surgery's discretion. Initial INR goal of 2-3. INR goal can be decreased to 1.5-2.0 in 3 months (with concurrent aspirin).
#Ascending aortic dilation
-Chronic, progressive.
-Ascending aorta 4.5 cm.
-S/P Ascending aorta replacement (#30 Hemashield [place] straight tube graft, serial #[id number]) with Dr. Chau, 11/29/2024.
-Post operative management as above.
#Hypertension
-New finding.
-Not previously hypertensive, could be related to pain/post operative status.
-Currently managed with nitroglycerin gtt.
-Consider changing metoprolol to carvedilol for further BP control as nitro is weaned.
-Pain control will be paramount.
#Fasting hyperglycemia
-New diagnosis.
-HgbA1c 5.2%.
Subjective/Interval History:
Surgery yesterday. Looks great.
Weight up 1.8 kg from baseline.
Hypertensive, requiring IV anti-hypertensives. Initially started on nicardipine, changed to nitroglycerin with better response.
PAd = 14-22 mmHg.
CI consistently > 2.1 L/min/m2.
Bieber-Cuong catheter discontinued.
SaO2 = 96% on 2LNC.
Furosemide 40 mg given this morning.
DATA:
CT Surgery, 11/29/2024:
Procedure(s) Performed:
1. Standard sternotomy with aortic and right atrial cannulation
2. Surgical aortic valve replacement [25 mm mechanical aortic valve]
3. Ascending aortic replacement [30 mm straight tube graft]
4. Transesophageal echocardiography
5. Placement of temporary ventricular pacing wire
Transthoracic echocardiogram, 10/19/2024:
Suboptimal due to poor acoustic windows overall, there is normal left
ventricular systolic function with an ejection fraction of 60 to 65% with grade
1 diastolic dysfunction.
Normal chamber sizes.
Aortic valve is thickened, calcified and restricted appears bicuspid with a
mean gradient of 55.8 mmHg and a peak gradient of 73.5 mmHg with a
calculated aortic valve area 0.72 cm sq. These findings are consistent with
severe aortic stenosis. There is no aortic regurgitation.
There is trace mitral and tricuspid regurgitation.
No pulmonary hypertension.
No pericardial effusion.
Cardiac catheterizationn 11/22/2024:
1. No coronary artery disease in a right dominant system.
Cardiac CT, 10/31/2024:
IMPRESSION:
Measurements for proposed SAVR procedure, to be added as a separate addendum.
Fusiform aneurysmal dilatation of the ascending thoracic aorta measuring up to 4.5 cm.
Minimal focal infectious/inflammatory bronchiolitis change in the right upper lobe. No dedicated imaging follow-up indicated.
Physical Exam
Vital Signs/Labs
Vital Signs
Temp Pulse Resp BP Pulse Ox
36.4 C 70 18 106/59 96
11/30/24 08:00 11/30/24 08:46 11/30/24 08:00 11/30/24 08:20 11/30/24 08:43
11/28/24 11/29/24 11/30/24
11:59 11:59 11:59
Actual Weight 108.9 kg 110.7 kg
11/30/24 03:11
11/30/24 03:11
PT 14.5 Sec (11.4-14.6) 11/30/24 03:11
INR 1.10 11/30/24 03:11
APTT 23.4 Sec (23.4-35.0) 11/29/24 10:59
Magnesium 2.2 mg/dl (1.6-2.3) 11/30/24 03:11
Physical Exam
Constitutional: No acute distress and Comfortable
EENT: Anicteric and Moist mucous membranes
Cardiovascular: Rhythm & rate is regular, Pedal edema is absent, JVD pressure is normal, S1S2 is normal (S2 is crisp and mechanical.) and Murmur/rub/gallop absent
Respiratory: Respiratory effort normal and Other (Decreased throughout.)
GI: Soft, Distention absent, Flat, Non tender and Normal bowel sounds
Neuro/Psych: AO x 3
Data Reviewed
-
Date of Service: November 30, 2024
Medical Decision Making: Reviewed Test Results, Independent Historian Assessment and Test Interpretation
EKG: Tracing Personally Visualized and interpreted and Report Reviewed by me
Echo: Report Reviewed by me
X-Ray/CT/US/MRI/NUC/PET: Image Personally Visualized and interpreted and Report Reviewed by me
Medical Tests (PFT, Pathology etc): Report Reviewed by me
Labs: Labs Reviewed by me
Old Records: Reviewed
--- NOTE | 2024-11-30 09:18 | PTCARENOTE ---
Pt AAOx3 in chair sitting comfortably, Morning assessment unremarkable-see documentation for more details, Pt on nitro at 60mcg-Per CT PA please titrate drip off pt in for Lopressor in for AM meds(nitro is now off), Chest tube to 20 suction drainage
looks serosanguineous, Discussed game plan for the day with PT no questions asked.
[2024-11-30 10:14] LABS: Glucose - Point of Care 111 mg/dl (70-99)
[2024-11-30] MEDS: NSS IV (10:18)
--- NOTE | 2024-11-30 11:06 | PTCARENOTE ---
Pt Walked with cardiac rehab and did great now sleeping in the bed, PT given 5mg Roxicodone, Insulin drip D/C'ed, Pt on 2L NC while sleeping, See Worklist for VS
--- NOTE | 2024-11-30 11:17 | W.PN.CARD.SR ---
Sheath/IABP Sheath Removal
Sheath Removal
Right Arterial Brachial:
Site appearance prior to sheath removal: Intact
Sheath removed by:: Physician staffing assistant
Name of associate removing sheath: Zaira Lao PA-C
Time of sheath removal: 09:00
Time hemostasis achieved: 09:15
Site appearance post sheath removal: Intact
Method of Hemostasis Post Sheath Removal: Manual Pressure
Dressing dry and intact?: Yes
--- NOTE | 2024-11-30 12:33 | PTCARENOTE ---
Rec'd pt this shift awake and alert in bed. Pt NSR on monitor, 2l n/c oxygen. VS obtained. Pt encouraged to cough and deep breathe. See worklist for VS/I and O and assessments.
[2024-11-30] MEDS: TORADOL 15 MG IV (12:37)
[2024-11-30 13:10] LABS: Glucose - Point of Care 134 mg/dl (70-99)
[2024-11-30] MEDS: NOVOLOG FLEXPEN-MODERATE RESISTANCE SC (13:11)
--- NOTE | 2024-11-30 14:48 | CM ---
Reviewed chart. Met with Mr. Dailey to review discharge plans. He states he is feeling well. He states he ambulated and felt tired afterwards. He states prior to admission he resides with his spouse and three children in a rancher style home with
a full basement. He states he enter the home from the downstairs so he has eleven steps to get to his bedroom/full bathroom. He states he has a powder room on the first ground level. He states prior to admission he was independent with ambulation
and adls. He states he does not have any DME in the home. He has a prescription plan. Telephone call to [facility] to see if they can accept the referral. Sent referral. Checking to see if they can do INR's finger sticks with results to
Dr. Russo. Medical work-up in progress. The discahrge plan is to return home with [facility] when medically stable.
[2024-11-30] MEDS: FERRLECIT 110 MG IV (14:55)
--- NOTE | 2024-11-30 15:29 | PTCARENOTE ---
Pt ambulating in room and in hallway, tolerated well. chest tube dsgs changed.
[2024-11-30 17:16] LABS: Glucose - Point of Care 188 mg/dl (70-99)
[2024-11-30] MEDS: COUMADIN 2.5 MG PO (17:17)
[2024-11-30] MEDS: NOVOLOG FLEXPEN-MODERATE RESISTANCE 1 UNITS SC (17:58)
[2024-11-30] MEDS: LOPRESSOR 25 MG PO (20:13)
--- NOTE | 2024-11-30 21:00 | PTCARENOTE ---
Assumed care of patient at 1900. Patient found oob in chair at time of assessment with spouse at bedside. Patient is AOx4, follows commands appropriately, moves all extremities. Lung sounds are diminished at the bases, saO2 94% on 2L (paced back on
O2 d/t desats to 88-89%). Patient has CTx2: 2xmeds draining to one atrium. Heart sounds are audible with click present on auscultation, patient is SR on the monitor, there is no observable edema. Weak but palpable radial pulses and normal palpable
dorsalis pedis pulses. V wires are present but insulated. Patient has active BS and voids in urinal. There is a sternal incision approx with surg adhesive JENNIFER. Patient has CT wound with 4x4 gauze dressing that is CDI. Patient has R IJ cordis
receiving KVO and L hand PIV available for intermittent infusion. Ambulation in hallways with RN. Given Joy 5 for pain. Call dubon within reach.
[2024-12-01] VITALS (11 sets, daily range): BP systolic 110–143; BP diastolic 52–93; PULSE 59; O2SAT 95–96; BMI 33.3
--- NOTE | 2024-12-01 01:01 | W.PN.CT ---
Today's Communication / Plan
-
-pod #2
-no issues overnight
-CT outputs: 2 meds 130/255 in 12/24 hrs
-diuresed with 40 iv Lasix on 11/30
-Coumadin started 11/30 for mechanical AVR. Got 2.5 mg. INR today 1.07
-current meds (ASA, Coumadin, Lopressor 25 bid, Amio, Protonix, vit C, Feosol)
-encourage IS, OOB, ambulate
Assessment / Plan
-
- Severe symptomatic aortic valve stenosis- s/p Surgical aortic valve replacement [25 mm On-X mechanical aortic valve]; Ascending aortic replacement [30 mm Hemashield [place] straight tube graft] by Dr. Chau on 11/29/24, pod #2
- Bicuspid aortic valve morphology, type II
- Associated ascending aortic aneurysm 4.5 cm, without rupture
- Hypertension
- Restless leg syndrome
- Acute postop blood loss anemia - stable, no transfusions
- Acute postop pulmonary insufficiency/atelectasis
- Acute postop hypovolemia with subsequent hypervolemia
Discussed patient care with: Nursing and Care Team
Subjective
-
Date of Service: December 01, 2024
Objective Data
-
PT 14.5 Sec (11.4-14.6) 11/30/24 03:11
INR 1.10 11/30/24 03:11
APTT 23.4 Sec (23.4-35.0) 11/29/24 10:59
Vital Signs
Vital Signs
Temp Pulse Resp BP Pulse Ox
98.2 F 72 18 122/68 97
11/30/24 20:00 12/01/24 00:30 11/30/24 20:00 11/30/24 22:08 11/30/24 22:00
CT Intake/Output/Weight
11/30/24 11/30/2412/01/25
06:59 18:59 06:59
Intake Total 448.8 / 797.6 1500 / 1580 80 / 1580
Output Total 615 / 1420 825 / 1170 345 / 1170
Balance -166.2 / -622.4 675 / 410 -265 / 410
SaO2: 97
Physical Exam
-
General: Awake and AOx3
Cardiovascular: Regular rate & rhythm, No Murmurs and No Rub
Respiratory: Decreased Breath Sounds
Sternum: Stable
Incision: Clean, Dry and Intact
Abdomen : soft, nontender, nondistended, + decreased bowel sounds
Extremities: No Edema (1+ DPs b/l)
Data Reviewed
-
Lab Results: Results Reviewed
Medications: Active Meds Reviewed
Chest X-Ray: Report Reviewed and Image Reviewed
ECG: Report Reviewed and Image Reviewed
[2024-12-01 01:02] LABS: Glucose - Point of Care 123 mg/dl (70-99)
[2024-12-01] MEDS: ROXICODONE 5 MG PO (01:06)
--- NOTE | 2024-12-01 01:11 | PTCARENOTE ---
Patient reassessed. VSS. Remains SR on the monitor. Additional 5 Joy administered for pain. Call dubon within reach.
[2024-12-01 04:53] LABS: Hematocrit 35.6 % (39.0-52.0); Hemoglobin 12.4 g/dL (13.0-18.0); Mean Corp Hgb Conc. 34.8 g/dL (33.0-37.0); Mean Corpuscular Volume 91.3 fL (80.0-94.0); Platelet Count 163 10^3/uL (130-400); Red Cell Dist. Width 12.3 % (11.5-14.5)
[2024-12-01 04:57] LABS: INR 1.07; PT 14.4 Sec (11.4-14.6)
[2024-12-01 05:13] LABS: Blood Urea Nitrogen 26 mg/dl (9-20); Calcium 8.4 mg/dl (8.4-10.2); Carbon Dioxide 30 mmol/L (22-30); Chloride 104 mmol/L (98-107); Estimated Creatinine Clearance > 125 ml/min; Glucose 109 mg/dl (70-99); Magnesium 2.1 mg/dl (1.6-2.3); Potassium 4.5 mmol/L (3.5-5.1); Sodium 135 mmol/L (135-145); eGFR > 60.00
[2024-12-01] MEDS: TYLENOL 1000 MG PO (06:02)
--- NOTE | 2024-12-01 07:27 | PTCARENOTE ---
Patient reassessed. VSS. AM hygiene care provided. OOB to chair without incident.
[2024-12-01 07:58] LABS: Glucose - Point of Care 133 mg/dl (70-99)
[2024-12-01] MEDS: NOVOLOG FLEXPEN-MODERATE RESISTANCE SC (08:03)
--- NOTE | 2024-12-01 08:08 | W.PN.CD ---
Today's Communication / Plan
-
Change metoprolol to carvedilol 6.25 mg BID.
Warfarin for mSAVR and PAF.
Furosemide 80 mg IV x1 and monitor.
I suspect AF my resolve with diuresis and decreased atrial stretch.
Incentive spirometry.
Ambulation.
Pain/chest tube management per CTS.
Impression / Plan
-
Impression/Plan: 48 y/o male with bicuspid aortic valve, aortic root/ascending aorta dilation with severe , hypertension, & lumbar disc disease admitted for elective SAVR and ascending aortic replacement.
Outpatient grounds supervisor: Dr. Mark Russo
#Bicuspid aortic valve with severe aortic stenosis
-Chronic, progressive, symptomatic.
-S/P SAVR (#25 On-X mechanical aortic valve, serial number [id number]) with Dr. Chau, 11/29/2024.
-Routine post operative care.
-Nitroglycerin gtt for BP control, goal SBP < 110 mmHg.
-Incentive spirometry.
-Ambulate when appropriate.
-Change metoprolol to carvedilol 12.5 mg BID to assist with BP control.
-Furosemide 80 mg IV x1 and monitor.
-Pain/chest tube management per CT surgery.
-Antibiotic prophylaxis education prior to discharge.
-Warfarin for anticoagulation. Initial INR goal of 2-3. INR goal can be decreased to 1.5-2.0 in 3 months (with concurrent aspirin).
#Ascending aortic dilation
-Chronic, progressive.
-Ascending aorta 4.5 cm.
-S/P Ascending aorta replacement (#30 Hemashield [place] straight tube graft, serial #[id number]) with Dr. Chau, 11/29/2024.
-Post operative management as above.
#Hypertension
-New finding.
-Not previously hypertensive, could be related to pain/post operative status.
-Currently managed with nitroglycerin gtt.
-Change metoprolol to carvedilol for further BP control as nitro is weaned.
-Pain control will be paramount.
#PAF
-New diagnosis, likely paroxysmal/post operative.
-Currently in AF with controlled ventricular response.
-Rate/rhythm control with beta safia and amiodarone.
-CHADS2-Vasc = 1 (HTN).
-Therapeutic anticoagulation due to mSAVR with warfarin. This may change INR goal to 2.5 with range of 2-3 rather than 1.5-2.
-I suspect that AF may resolve with diuresis and decreased myocardial stretch.
#Fasting hyperglycemia
-New diagnosis.
-HgbA1c 5.2%.
Subjective/Interval History:
Developed AF this morning, rate controlled.
Weight up 0.7 kg from yesterday in spite of furosemide 40 mg IV.
BP remains consistently > 110 mmHg.
SaO2 94% on RA.
Warfarin 2.5 mg started yesterday.
DATA:
CT Surgery, 11/29/2024:
Procedure(s) Performed:
1. Standard sternotomy with aortic and right atrial cannulation
2. Surgical aortic valve replacement [25 mm mechanical aortic valve]
3. Ascending aortic replacement [30 mm straight tube graft]
4. Transesophageal echocardiography
5. Placement of temporary ventricular pacing wire
Transthoracic echocardiogram, 10/19/2024:
Suboptimal due to poor acoustic windows overall, there is normal left
ventricular systolic function with an ejection fraction of 60 to 65% with grade
1 diastolic dysfunction.
Normal chamber sizes.
Aortic valve is thickened, calcified and restricted appears bicuspid with a
mean gradient of 55.8 mmHg and a peak gradient of 73.5 mmHg with a
calculated aortic valve area 0.72 cm sq. These findings are consistent with
severe aortic stenosis. There is no aortic regurgitation.
There is trace mitral and tricuspid regurgitation.
No pulmonary hypertension.
No pericardial effusion.
Cardiac catheterizationn 11/22/2024:
1. No coronary artery disease in a right dominant system.
Cardiac CT, 10/31/2024:
IMPRESSION:
Measurements for proposed SAVR procedure, to be added as a separate addendum.
Fusiform aneurysmal dilatation of the ascending thoracic aorta measuring up to 4.5 cm.
Minimal focal infectious/inflammatory bronchiolitis change in the right upper lobe. No dedicated imaging follow-up indicated.
Physical Exam
Vital Signs/Labs
Vital Signs
Temp Pulse Resp BP Pulse Ox
36.9 C 70 15 143/69 94
12/01/24 07:51 12/01/24 08:06 12/01/24 07:51 12/01/24 07:54 12/01/24 08:03
11/29/24 11/30/24 12/01/24
11:59 11:59 11:59
Actual Weight 108.9 kg 110.7 kg 111.4 kg
12/01/24 04:33
12/01/24 04:33
PT 14.4 Sec (11.4-14.6) 12/01/24 04:33
INR 1.07 12/01/24 04:33
APTT 23.4 Sec (23.4-35.0) 11/29/24 10:59
Magnesium 2.1 mg/dl (1.6-2.3) 12/01/24 04:33
Physical Exam
Constitutional: No acute distress and Comfortable
EENT: Anicteric and Moist mucous membranes
Cardiovascular: Rhythm/rate is irregular, Pedal edema present, S1S2 is normal (S2 is crisp and mechanical.) and Murmur/rub/gallop absent
Respiratory: Respiratory effort normal and Other (Decreased throughout.)
GI: Soft, Distention absent, Flat, Non tender and Normal bowel sounds
Neuro/Psych: AO x 3
Data Reviewed
-
Date of Service: December 01, 2024
Medical Decision Making: Reviewed Test Results, Independent Historian Assessment and Test Interpretation
EKG: Tracing Personally Visualized and interpreted and Report Reviewed by me
Echo: Tracing Personally Visualized and interpreted and Report Reviewed by me
X-Ray/CT/US/MRI/NUC/PET: Image Personally Visualized and interpreted and Report Reviewed by me
Medical Tests (PFT, Pathology etc): Image Personally Visualized and interpreted and Report Reviewed by me
Labs: Labs Reviewed by me
Old Records: Reviewed
--- NOTE | 2024-12-01 08:12 | PTCARENOTE ---
Patient received from infusion pharmacist resting oob in chair, AAO x 3, states pain controlled. NSR via cm, converted to afib controlled rate - SUNNY notified. RIJ Cordis w/kvo infusing. Epicardial V-wire tied to pulse generator. Mediastinal chest tubes x 2,
Y-connected to pleurevac - no leaks noted. All procedural sites stable. Patient updated to plan of care for the day, in agreement. See work list for full assessment and interventions performed.
[2024-12-01] MEDS: CORDARONE 103 MG IV (08:42)
[2024-12-01] MEDS: BACTROBAN 2% OINTMENT 1 APPLIC NASAL ×2 (08:42→20:43)
[2024-12-01] MEDS: NEURONTIN 100 MG PO (08:46)
[2024-12-01] MEDS: MAGNESIUM OXIDE 500 MG PO ×2 (08:46→20:38)
[2024-12-01] MEDS: PACERONE 200 MG PO ×2 (08:46→14:06)
[2024-12-01] MEDS: SENOKOT-S 1 TABLET PO ×2 (08:46→20:38)
[2024-12-01] MEDS: LOPRESSOR 25 MG PO (08:46)
[2024-12-01] MEDS: PROTONIX 40 MG PO (08:46)
[2024-12-01] MEDS: VITAMIN C 500 MG PO (08:46)
[2024-12-01] MEDS: FEOSOL 325 MG PO (08:47)
[2024-12-01] MEDS: LOW STRENGTH ASPIRIN 81 MG PO (08:47)
[2024-12-01] MEDS: NSS 500 IV (08:47)
[2024-12-01] MEDS: LIDOCAINE 4% PATCH TOPICAL (08:47)
[2024-12-01] MEDS: LASIX 40 MG IV ×2 (11:55→12:01)
[2024-12-01] MEDS: KCL 20 MEQ PO (11:56)
[2024-12-01] MEDS: COREG 6.25 MG PO (12:01)
[2024-12-01] MEDS: FERRLECIT 110 MG IV (14:06)
[2024-12-01] MEDS: TYLENOL PO ×2 (14:06→21:46)
[2024-12-01] MEDS: NEURONTIN PO ×2 (14:07→21:46)
--- NOTE | 2024-12-01 14:15 | CM ---
Reviewed chart Met with Mr. Dailey to review discharge plans. He states he is feeling well just tired. We reviewed a home visit by the Transitional Care Nurse. He is agreeable to a home visit. He ambulated 500 feet today. Prior to admission he
resides with his spouse and three children in a rancher style home with a full basement. He enter the home from the downstairs so he has eleven steps to get to his bedroom/full bathroom. He has a powder room on the first ground level. Prior to
admission he was independent with ambulation and adls. He does not have any DME in the home. He has a prescription plan. Telephone call to [facility] to cancel the referral. He will need blood work for INR's with results to Dr. Rafaela (~) Office. Medical work-up in progress. The discharge plan is to return home with a home visit by the Transitional Care Nurse when medically stable.
--- NOTE | 2024-12-01 14:40 | PTCARENOTE ---
Pt having occasional pauses on monitor. Rate down to 37. Resting in bed. Asymptomatic
--- NOTE | 2024-12-01 15:13 | PTCARENOTE ---
Pt sleeping and having frequent pauses on monitor with HR down to 35. Epicardial V wire rate changed to 40. Pacing appropriately after.
--- NOTE | 2024-12-01 16:19 | PTCARENOTE ---
Bilateral mediastinal chest tubes removed per CT LEAD INSPECTOR order. Pt tolerated w/o issue. OOB x minimal assistance. Remains in slow a fib with occasional pacing noted. VSS. Assessment otherwise unchanged from prior.
[2024-12-01] MEDS: FLEXERIL 5 MG PO (16:53)
[2024-12-01] MEDS: COUMADIN 3 MG PO (17:28)
--- NOTE | 2024-12-01 20:00 | PTCARENOTE ---
assumed care of patient @ 1900. received pt laying in bed, Aox3. VSS. Slow aflutter/afib on tele HR 40s-60s. BP stable. Mid 90s on room air. +BS. voiding clear yellow urine. Surgical incisions CDI, JENNIFER. R IJ cordis and PIV intact. resting
comfortably in bed with call dubon within reach .
[2024-12-02] VITALS (15 sets, daily range): BP systolic 119–154; BP diastolic 61–95; PULSE 73; O2SAT 93–95; BMI 33.0
[2024-12-02] MEDS: FLEXERIL 10 MG PO ×2 (01:07→22:06)
--- NOTE | 2024-12-02 04:21 | PTCARENOTE ---
pt converted to SR at 0100.
[2024-12-02 04:50] LABS: Hematocrit 28.3 % (39.0-52.0); Hemoglobin 10.0 g/dL (13.0-18.0); Mean Corp Hgb Conc. 35.3 g/dL (33.0-37.0); Mean Corpuscular Volume 91.0 fL (80.0-94.0); Platelet Count 186 10^3/uL (130-400); Red Cell Dist. Width 12.0 % (11.5-14.5)
[2024-12-02 05:09] LABS: INR 1.08; PT 14.5 Sec (11.4-14.6)
[2024-12-02 05:17] LABS: Blood Urea Nitrogen 20 mg/dl (9-20); Calcium 7.7 mg/dl (8.4-10.2); Carbon Dioxide 30 mmol/L (22-30); Chloride 102 mmol/L (98-107); Estimated Creatinine Clearance > 125 ml/min; Glucose 99 mg/dl (70-99); Magnesium 2.0 mg/dl (1.6-2.3); Potassium 4.2 mmol/L (3.5-5.1); Sodium 135 mmol/L (135-145); eGFR > 60.00
[2024-12-02] MEDS: TYLENOL PO ×3 (07:14→21:00)
[2024-12-02] MEDS: FEOSOL 325 MG PO (07:41)
[2024-12-02] MEDS: VITAMIN C 500 MG PO (07:41)
[2024-12-02] MEDS: PROTONIX 40 MG PO (07:41)
[2024-12-02] MEDS: COUMADIN 5 MG PO (07:41)
[2024-12-02] MEDS: BACTROBAN 2% OINTMENT 1 APPLIC NASAL ×2 (07:42→20:28)
[2024-12-02] MEDS: LIDOCAINE 4% PATCH TOPICAL (07:42)
[2024-12-02] MEDS: SENOKOT-S PO ×2 (07:42→20:32)
[2024-12-02] MEDS: LOW STRENGTH ASPIRIN 81 MG PO (07:42)
[2024-12-02] MEDS: NEURONTIN PO ×3 (07:42→21:00)
[2024-12-02] MEDS: MAGNESIUM OXIDE 500 MG PO ×2 (07:42→20:29)
--- NOTE | 2024-12-02 07:54 | W.PN.CT ---
Today's Communication / Plan
-
-pod #3
-a-fib on 12/01 with slow ventricular rate 40s-50s with intermittent paced beats at 40 bpm - converted spontaneously to nsr on 12/02 at 1:15am, no conversion pause. BB and po Amio are on hold
-feels much less pain since CTs came out. Refuses all pain meds, except Flexeril. Increased Flexeril to 10 tid (pt says that took 25 mg 2-3 times per day without drowsiness after his back surgery in April )
-diuresed with 40 iv bid Lasix on 12/01 (UO 1800+)
-Coumadin started 11/30 for mechanical AVR. Got 2.5, 3 mg. INR today 1.08
-current meds (ASA, Coumadin, Protonix, vit C, Feosol). Coreg and Amio are on hold d/t bradycardia while in a-fib
-encourage IS (upto 1500 so far), OOB, ambulate
Assessment / Plan
-
- Severe symptomatic aortic valve stenosis- s/p Surgical aortic valve replacement [25 mm On-X mechanical aortic valve]; Ascending aortic replacement [30 mm Hemashield [place] straight tube graft] by Dr. Chau on 11/29/24, pod #3
- Bicuspid aortic valve morphology, type II
- Associated ascending aortic aneurysm 4.5 cm, without rupture
- Hypertension
- Restless leg syndrome
- Acute postop blood loss anemia - stable, no transfusions
- Acute postop pulmonary insufficiency/atelectasis
- Acute postop hypovolemia with subsequent hypervolemia
- Acute postop a-fib with slow ventricular rate 40s-50s hr on 12/01- converted spontaneously to nsr on 12/02 at 1:15am, no conversion pause
Discussed patient care with: Nursing and Care Team
Subjective
-
Date of Service: December 02, 2024
Objective Data
-
PT 14.4 Sec (11.4-14.6) 12/01/24 04:33
INR 1.07 12/01/24 04:33
APTT 23.4 Sec (23.4-35.0) 11/29/24 10:59
Vital Signs
Vital Signs
Temp Pulse Resp BP Pulse Ox
98.6 F 54 16 124/61 92
12/01/24 21:00 12/01/24 21:45 12/01/24 21:00 12/01/24 20:31 12/01/24 21:00
CT Intake/Output/Weight
12/01/24 12/01/24 12/02/24
06:59 18:59 06:59
Intake Total 120 / 1620 540 / 570 30 / 570
Output Total 420 / 1245 1830 / 2230 400 / 2230
Balance -300 / 375 -1290 / -1660 -370 / -1660
SaO2: 92
Physical Exam
-
General: Awake and AOx3
Cardiovascular: Regular rate & rhythm (sharp S2 click), No Murmurs and No Rub
Respiratory: Decreased Breath Sounds (at bases b/l. No wheeze, no rales b/l)
Sternum: Stable
Incision: Clean, Dry and Intact
Extremities: No Edema
Abdomen: soft, nondistended, + bowel sounds
Data Reviewed
-
Lab Results: Results Reviewed
Medications: Active Meds Reviewed
Chest X-Ray: Report Reviewed and Image Reviewed
ECG: Report Reviewed and Image Reviewed
--- NOTE | 2024-12-02 08:00 | PTCARENOTE ---
Assumed care of patient from power and recovery shift engineer RN. AAO x 3 Ambulating at [place] w/o issues. SR on monitor. Epicardial wire insulated at present. Room air, 94%. Denies cough or sputum. Abdomen soft and non tender, pt states he had a BM this am. Voiding
independently. Pulses palpable. No edema appreciated. Sternal incision well approximated, JENNIFER
--- NOTE | 2024-12-02 08:57 | W.PN.UPDATE ---
Update Note
Progress Note Update
No further rhythm issues after PAF yesterday. Amiodarone and Coreg continue to be held. Per Dr. Chau, 1 bipolar ventricular temporary wire was removed without difficulty. INR 1.08 today, and patient will be dosed with 5 mg of Coumadin for goal
INR of 2�3.
--- NOTE | 2024-12-02 09:25 | W.PN.CD ---
Today's Communication / Plan
-
Convert to PO diuretics (one month course) in anticipation of discharge.
Favor restarting low dose carvedilol for BP control, some rate control if he lapses back into AF.
The patient should have a two week monitor in the next three months to assess burden of AF and to see if [facility] INR window needs to be adjusted.
Impression / Plan
-
Impression/Plan: 48 y/o male with bicuspid aortic valve, aortic root/ascending aorta dilation with severe , hypertension, & lumbar disc disease admitted for elective SAVR and ascending aortic replacement.
Outpatient school supervisor: Dr. Mark Russo
#Bicuspid aortic valve with severe aortic stenosis
-Chronic, progressive, symptomatic.
-S/P SAVR (#25 On-X mechanical aortic valve, serial number [id number]) with Dr. Chau, 11/29/2024.
-Routine post operative care.
-Nitroglycerin gtt for BP control, goal SBP < 110 mmHg.
-Incentive spirometry.
-Ambulate when appropriate.
-Change metoprolol to carvedilol 12.5 mg BID to assist with BP control.
-Convert to PO diuretics (furosemide 40 mg PO daily) for one month tomorrow in anticipation of discharge.
-Antibiotic prophylaxis education prior to discharge.
-Warfarin for anticoagulation. Initial INR goal of 2-3. INR goal can be decreased to 1.5-2.0 in 3 months (with concurrent aspirin) if there is no other indication for a higher INR.
-Restart carvedilol 3.125 BID for BP/HR control.
#Ascending aortic dilation
-Chronic, progressive.
-Ascending aorta 4.5 cm.
-S/P Ascending aorta replacement (#30 Hemashield [place] straight tube graft, serial #[id number]) with Dr. Chau, 11/29/2024.
-Post operative management as above.
-Carvedilol as above.
#Hypertension
-New finding.
-Not previously hypertensive, could be related to pain/post operative status.
-Resume carvedilol at 3.125 mg BID.
#PAF
-New diagnosis, likely paroxysmal/post operative.
-Currently in NSR.
-Rate/rhythm control with low dose carvedilol.
-CHADS2-Vasc = 1 (HTN).
-Therapeutic anticoagulation due to mSAVR with warfarin. Goal INR 2-3 for the next 3 months.
-I would favor a two week monitor sometime in the first three months post op to assess any residual burden of atrial fibrillation and need to adjust INR window.
#Fasting hyperglycemia
-New diagnosis.
-HgbA1c 5.2%.
Subjective/Interval History:
Furosemide 80 mg IV given yesterday.
Weight down 1 kg. Remains 1.5 kg higher than baseline.
Converted to NSR overnight.
Bradycardic while in AF, prompting CTS to hold amiodarone and carvedilol.
Chest tubes and wires removed yesterday.
Feels well. Ambulating without difficulty.
DATA:
CT Surgery, 11/29/2024:
Procedure(s) Performed:
1. Standard sternotomy with aortic and right atrial cannulation
2. Surgical aortic valve replacement [25 mm mechanical aortic valve]
3. Ascending aortic replacement [30 mm straight tube graft]
4. Transesophageal echocardiography
5. Placement of temporary ventricular pacing wire
Transthoracic echocardiogram, 10/19/2024:
Suboptimal due to poor acoustic windows overall, there is normal left
ventricular systolic function with an ejection fraction of 60 to 65% with grade
1 diastolic dysfunction.
Normal chamber sizes.
Aortic valve is thickened, calcified and restricted appears bicuspid with a
mean gradient of 55.8 mmHg and a peak gradient of 73.5 mmHg with a
calculated aortic valve area 0.72 cm sq. These findings are consistent with
severe aortic stenosis. There is no aortic regurgitation.
There is trace mitral and tricuspid regurgitation.
No pulmonary hypertension.
No pericardial effusion.
Cardiac catheterizationn 11/22/2024:
1. No coronary artery disease in a right dominant system.
Cardiac CT, 10/31/2024:
IMPRESSION:
Measurements for proposed SAVR procedure, to be added as a separate addendum.
Fusiform aneurysmal dilatation of the ascending thoracic aorta measuring up to 4.5 cm.
Minimal focal infectious/inflammatory bronchiolitis change in the right upper lobe. No dedicated imaging follow-up indicated.
Physical Exam
Vital Signs/Labs
Vital Signs
Temp Pulse Resp BP Pulse Ox
36.9 C 72 16 119/75 94
12/02/24 08:33 12/02/24 08:33 12/02/24 08:33 12/02/24 07:38 12/02/24 08:33
11/30/24 12/01/24 12/02/24
11:59 11:59 11:59
Actual Weight 110.7 kg 111.4 kg 110.4 kg
12/02/24 04:43
12/02/24 04:43
PT 14.5 Sec (11.4-14.6) 12/02/24 04:43
INR 1.08 12/02/24 04:43
APTT 23.4 Sec (23.4-35.0) 11/29/24 10:59
Magnesium 2.0 mg/dl (1.6-2.3) 12/02/24 04:43
Physical Exam
Constitutional: No acute distress and Comfortable
EENT: Anicteric and Moist mucous membranes
Cardiovascular: Rhythm & rate is regular, Pedal edema is absent, JVD pressure is normal, S1S2 is normal (S2 is crisp and mechanical.) and Murmur/rub/gallop absent
Respiratory: Respiratory effort normal, Lungs clear to auscul., Wheeze Absent, Crackles Absent and Rhonchi Absent
GI: Soft, Distention absent, Flat, Non tender and Normal bowel sounds
Neuro/Psych: AO x 3
Data Reviewed
-
Date of Service: December 02, 2024
Medical Decision Making: Reviewed Test Results, Independent Historian Assessment and Test Interpretation
EKG: Tracing Personally Visualized and interpreted and Report Reviewed by me
Echo: Report Reviewed by me
X-Ray/CT/US/MRI/NUC/PET: Image Personally Visualized and interpreted and Report Reviewed by me
Medical Tests (PFT, Pathology etc): Report Reviewed by me
Labs: Labs Reviewed by me
Old Records: Reviewed
--- NOTE | 2024-12-02 10:19 | PTCARENOTE ---
Epicardial wire removed by CT INTERACTIVE PROJECT MANAGER, VS Q 15 minutes per protocol and bedrest x 1 hour. Pt tolerated w/o issue. RT IJ cordis removed and hemostasis achieved.
[2024-12-02] MEDS: HEPARIN 25000 UNITS/250 ML IV (10:56)
[2024-12-02] MEDS: NSS IV (11:00)
[2024-12-02 11:40] LABS: APTT 29.5 Sec (23.4-35.0)
--- NOTE | 2024-12-02 12:25 | PTCARENOTE ---
Heparin drip infusing per protocol. VSS. Denies complaint. Assessment otherwise unchanged from prior.
[2024-12-02] MEDS: FERRLECIT IV (13:37)
--- NOTE | 2024-12-02 16:06 | CM ---
Reviewed chart. Met with Mr. Dailey to review discharge plan He states he is feeling well and maybe able to go home soon. He ambulated in the hallway today. We reviewed a home visit by the Transitional Care Nurse and doing his INR with results to
Dr. Russo. Prior to admission he resides with his spouse and three children in a rancher style home with a full basement. He enter the home from the downstairs so he has eleven steps to get to his bedroom/full bathroom. He has a powder room on the
first ground level. Prior to admission he was independent with ambulation and adls. He does not have any DME in the home. He has a prescription plan. Telephone call to [facility] to cancel the referral. He will need blood work for
INR's with results to Dr. Russo Office. Medical work-up in progress. The discharge plan is to return home with a home visit by the Transitional Care Nurse when medically stable.
[2024-12-02] MEDS: COUMADIN 2.5 MG PO (17:03)
[2024-12-02 17:08] LABS: APTT 33.0 Sec (23.4-35.0)
--- NOTE | 2024-12-02 19:40 | PTCARENOTE ---
Received patient from RN @ 1900. Patient lying in bed comfortably sleeping w/ call dubon in reach. Patient AOx3. NSR on monitor. BP 134/75 HR 73. Heart sounds audible w/ click. Radial and pedal pulses present. trace edema noted bilaterally in
hands. IS 1000. Lungs diminished in bases bilaterally. POX 94% RA. Bowel sounds normoactive. Voiding clear yellow urine. Right PIV patent and intact. Heparin infusing per protocol. Sternal incision well approximated JENNIFER. CT punctures
scabbed not approximated ORDER CONTROL CLERK BLOOD BANK. See worklist for more details.
[2024-12-02] MEDS: COREG 3.125 MG PO (20:29)
[2024-12-03] VITALS (8 sets, daily range): BP systolic 104–150; BP diastolic 61–88; BMI 32.4
--- NOTE | 2024-12-03 00:50 | PTCARENOTE ---
Patient reassessed. NSR w/ first degree heart block. BP 135/77 HR 72 POX 93% RA. PTT lab drawn.
[2024-12-03 01:04] LABS: APTT 33.0 Sec (23.4-35.0)
--- NOTE | 2024-12-03 04:23 | W.PN.CT ---
Addendum entered and electronically signed by Nikhil Díaz MD 12/03/24 09:09:
WOYTUS [id number]: POD#4 s/p set up mechanic stamping machines On-X AVR (25mm) and ascending aortic replacement
No major overnight events.� AVSS.� RA.� No gtts/drains.� UO: adequate.� Tolerating PO.� Neuro: intact
INR 1.51 (from 1.08) � Coumadin 2, 2.5, 7.5.�
-��������� OOB/IS/ambulate
-��������� Coumadin 5mg tonight
-��������� Potential D/C tomorrow if INR in 2-3 range
Original Note:
Today's Communication / Plan
-
Plan:
-No major issues overnight. Hemodynamically and neurologically intact
-On heparin to Coumadin bridge for On-X mechanical AVR
-INR 1.51 after 7.5 mg Coumadin yesterday, up from 1.08
-Postop bradycardia has resolved, Cardiology requested low dose Coreg. Currently tolerating Coreg 3.125 mg BID. Amiodarone remains on hold
-Cont. current meds (ASA, heparin, Coumadin, Coreg)
-Encourage use of IS
-OOB into chair/Ambulate
-Awaiting therapeutic INR
Assessment / Plan
-
- Severe symptomatic aortic valve stenosis- s/p Surgical aortic valve replacement [25 mm On-X mechanical aortic valve]; Ascending aortic replacement [30 mm Hemashield [place] straight tube graft] by Dr. Chau on 11/29/24, pod #4
- Bicuspid aortic valve morphology, type II
- Associated ascending aortic aneurysm 4.5 cm, without rupture
- Hypertension
- Restless leg syndrome
- Acute postop blood loss anemia - stable, no transfusions
- Acute postop pulmonary insufficiency/atelectasis
- Acute postop hypovolemia with subsequent hypervolemia
- Acute postop a-fib with slow ventricular rate 40s-50s hr on 12/01- converted spontaneously to nsr on 12/02 at 1:15am, no conversion pause
Discussed patient care with: Cardiology, Nursing, Respiratory Therapy, Pharmacy and Care Team
Subjective
-
Date of Service: December 03, 2024
Pt c/o mild incisional pain, otherwise feels well
Objective Data
-
PT 14.5 Sec (11.4-14.6) 12/02/24 04:43
INR 1.08 12/02/24 04:43
APTT 33.0 Sec (23.4-35.0) 12/03/24 00:42
Vital Signs
Vital Signs
Temp Pulse Resp BP Pulse Ox
98.4 F 77 18 121/61 93
12/03/24 04:13 12/03/24 04:07 12/03/24 00:47 12/03/24 04:07 12/03/24 04:13
CT Intake/Output/Weight
12/02/24 12/02/24 12/03/24
06:59 18:59 06:59
Intake Total 100 / 640 490 / 514 24 / 514
Output Total 700 / 2530 400 / 400
Balance -600 / -1890 90 / 114 24 / 114
SaO2: 93 (RA)
Physical Exam
-
General: Awake, Oriented and AOx3
Cardiovascular: Regular rate & rhythm, No Murmurs, No Rub and No Gallop
Respiratory: Decreased Breath Sounds (at bases, otherwise clear)
Sternum: Stable
Incision: Clean, Dry, Intact and Dressing Intact
Extremities: Other (+trace edema)
Data Reviewed
-
Lab Results: Results Reviewed
Medications: Active Meds Reviewed
Chest X-Ray: Report Reviewed and Image Reviewed
ECG: Report Reviewed and Image Reviewed
--- NOTE | 2024-12-03 04:32 | PTCARENOTE ---
Patient reassessed. Patient lying comfortably in bed. SR w/ first degree block on monitor. BP 121/61 HR 77 POX 93% RA.
[2024-12-03] MEDS: TYLENOL PO ×3 (05:24→22:33)
[2024-12-03 06:09] LABS: Hematocrit 30.5 % (39.0-52.0); Hemoglobin 10.7 g/dL (13.0-18.0); Mean Corp Hgb Conc. 35.1 g/dL (33.0-37.0); Mean Corpuscular Volume 91.0 fL (80.0-94.0); Platelet Count 230 10^3/uL (130-400); Red Cell Dist. Width 11.9 % (11.5-14.5)
[2024-12-03 06:12] LABS: INR 1.51; PT 18.4 Sec (11.4-14.6)
[2024-12-03 06:27] LABS: Blood Urea Nitrogen 14 mg/dl (9-20); Calcium 8.3 mg/dl (8.4-10.2); Carbon Dioxide 27 mmol/L (22-30); Chloride 105 mmol/L (98-107); Estimated Creatinine Clearance > 125 ml/min; Glucose 101 mg/dl (70-99); Magnesium 2.0 mg/dl (1.6-2.3); Potassium 4.2 mmol/L (3.5-5.1); Sodium 137 mmol/L (135-145); eGFR > 60.00
--- NOTE | 2024-12-03 07:00 | PTCARENOTE ---
pt received at change of shift, resting comfortably OOB in chair. Pt denies pain. SR on telemetry heart rate 80-90s. pulses palpable. trace edema in hands. pt on room air, sat 96%. lung sounds diminished in bases. active bowel sounds, pt reports
having bowel movement today. voiding without difficulty. surgical sites CDI. heparin gtt infusing per protocol. see worklist for full nursing assessment and interventions.
[2024-12-03] MEDS: HEPARIN 25000 UNITS/250 ML IV ×2 (08:19→22:19)
[2024-12-03] MEDS: VITAMIN C 500 MG PO (08:24)
[2024-12-03] MEDS: PROTONIX 40 MG PO (08:24)
[2024-12-03] MEDS: BACTROBAN 2% OINTMENT 1 APPLIC NASAL (08:24)
[2024-12-03] MEDS: LOW STRENGTH ASPIRIN 81 MG PO (08:24)
[2024-12-03] MEDS: FEOSOL 325 MG PO (08:24)
[2024-12-03] MEDS: COREG 3.125 MG PO ×2 (08:25→20:49)
[2024-12-03] MEDS: MAGNESIUM OXIDE 500 MG PO ×2 (08:25→20:49)
[2024-12-03] MEDS: LIDOCAINE 4% PATCH TOPICAL (08:25)
[2024-12-03] MEDS: SENOKOT-S PO ×2 (08:26→22:33)
[2024-12-03] MEDS: NEURONTIN PO ×3 (08:26→22:33)
[2024-12-03] MEDS: NSS IV (08:26)
[2024-12-03 08:43] LABS: APTT 46.5 Sec (23.4-35.0)
--- NOTE | 2024-12-03 11:43 | W.PN.CD ---
Addendum entered and electronically signed by Stephen Lee MD 12/03/24 13:03:
Patient seen and examined in collaboration with TANKAGE SUPERVISOR; agree with below.
- Remains clinically stable status-post mechanical AVR.
- No events on telemetry; remains in sinus rhythm.
- INR 1.51 (goal 2.0-3.0); continue warfarin load.
Original Note:
Today's Communication / Plan
-
Continue warfarin (dosed for tonight) and monitor INR. Currently on IV heparin.
Continue Coreg and follow tele/HR
Plan for lasix x 1 month, and OP 2 week monitor in f/u per Dr. Mendoza (see note 12/02/24)
Impression / Plan
-
Impression/Plan: 48 y/o male with bicuspid aortic valve, aortic root/ascending aorta dilation with severe , hypertension, & lumbar disc disease admitted for elective SAVR and ascending aortic replacement.
Outpatient health inspector: Dr. Mark Russo
#Bicuspid aortic valve with severe aortic stenosis:
-S/P SAVR (#25 On-X mechanical aortic valve, serial number [id number]) with Dr. Chau, 11/29/2024.
-Incentive spirometry and ambulation
-Convert to PO diuretics (furosemide 40 mg PO daily) for one month tomorrow in anticipation of discharge.
-Antibiotic prophylaxis education prior to discharge.
-Warfarin for anticoagulation. On IV heparin currently. Initial INR goal of 2-3. INR goal can be decreased to 1.5-2.0 in 3 months (with concurrent aspirin) if there is no other indication for a higher INR.
-plan for one month course PO Lasix per Dr. Mendoza
#Ascending aortic dilation
-Chronic, progressive.
-Ascending aorta 4.5 cm.
-S/P Ascending aorta replacement (#30 Hemashield [place] straight tube graft, serial #[id number]) with Dr. Chau, 11/29/2024.
-Coreg added for BP/HR control
#Hypertension
-New finding.
-Not previously hypertensive, could be related to pain/post operative status.
-Continue coreg and monitor
#PAF
-New diagnosis, likely paroxysmal/post operative.
-Currently in NSR.
-Rate/rhythm control with low dose carvedilol.
-CHADS2-Vasc = 1 (HTN).
-Therapeutic anticoagulation due to mSAVR with warfarin. Goal INR 2-3 for the next 3 months.
-I would favor a two week monitor sometime in the first three months post op to assess any residual burden of atrial fibrillation and need to adjust INR window.
#Fasting hyperglycemia
-New diagnosis.
-HgbA1c 5.2%.
Subjective/Interval History:
Feels well, looks good. Ambulating without difficulty.
DATA:
CT Surgery, 11/29/2024:
Procedure(s) Performed:
1. Standard sternotomy with aortic and right atrial cannulation
2. Surgical aortic valve replacement [25 mm mechanical aortic valve]
3. Ascending aortic replacement [30 mm straight tube graft]
4. Transesophageal echocardiography
5. Placement of temporary ventricular pacing wire
Transthoracic echocardiogram, 10/19/2024:
Suboptimal due to poor acoustic windows overall, there is normal left
ventricular systolic function with an ejection fraction of 60 to 65% with grade
1 diastolic dysfunction.
Normal chamber sizes.
Aortic valve is thickened, calcified and restricted appears bicuspid with a
mean gradient of 55.8 mmHg and a peak gradient of 73.5 mmHg with a
calculated aortic valve area 0.72 cm sq. These findings are consistent with
severe aortic stenosis. There is no aortic regurgitation.
There is trace mitral and tricuspid regurgitation.
No pulmonary hypertension.
No pericardial effusion.
Cardiac catheterizationn 11/22/2024:
1. No coronary artery disease in a right dominant system.
Cardiac CT, 10/31/2024:
IMPRESSION:
Measurements for proposed SAVR procedure, to be added as a separate addendum.
Fusiform aneurysmal dilatation of the ascending thoracic aorta measuring up to 4.5 cm.
Minimal focal infectious/inflammatory bronchiolitis change in the right upper lobe. No dedicated imaging follow-up indicated.
Physical Exam
Vital Signs/Labs
Vital Signs
Temp Pulse Resp BP Pulse Ox
98.2 F 75 16 134/71 94
12/03/24 08:00 12/03/24 10:00 12/03/24 08:00 12/03/24 08:25 12/03/24 08:00
12/02/24 12/03/24 12/04/24
06:59 06:59 06:59
Actual Weight 110.4 kg 108.3 kg
12/03/24 05:51
12/03/24 05:51
PT 18.4 Sec (11.4-14.6) H 12/03/24 05:51
INR 1.51 12/03/24 05:51
APTT 46.5 Sec (23.4-35.0) H 12/03/24 08:18
Magnesium 2.0 mg/dl (1.6-2.3) 12/03/24 05:51
Physical Exam
Constitutional: No acute distress
EENT: Anicteric
Cardiovascular: Rhythm & rate is regular and Other (mechanical heart sound present)
Respiratory: Respiratory effort normal and Lungs clear to auscul.
Neuro/Psych: AO x 3
Other: Skin (midsternal incision site well-healing)
Data Reviewed
-
Date of Service: December 03, 2024
EKG: Other (SR)
Labs: Labs Reviewed by me
--- NOTE | 2024-12-03 12:57 | PTCARENOTE ---
vitals stable. pt ambulating independently in room. no changes in assessment noted.
[2024-12-03 15:09] LABS: APTT 63.2 Sec (23.4-35.0)
--- NOTE | 2024-12-03 16:42 | PTCARENOTE ---
pt ambulating independently in murry/room. pt denies pain. SR on telemetry. remains on heparin gtt per orders. per PA okay to shower. pt showered independently. no changes in assessment noted.
[2024-12-03] MEDS: COUMADIN 5 MG PO (17:24)
--- NOTE | 2024-12-03 18:48 | PTCARENOTE ---
Rec'd Pt , transferred from CVICU, A,A+OX3, denies pain, Lungs clear, decreased at bases. Midsternal incision JENNIFER, approx, clean and dry. VSS. and daughter at bedside.
[2024-12-03] MEDS: FLEXERIL 10 MG PO (21:34)
[2024-12-03 21:46] LABS: APTT 64.7 Sec (23.4-35.0)
--- NOTE | 2024-12-03 22:42 | PTCARENOTE ---
Assumed care of the pt @ 1900. Pt is AAOx3 SR with 1st degree A/V Block Heparin gtt infusing titrating per protocol. Call dubon within reach.
[2024-12-04 04:42] VITALS: BP 132/77
[2024-12-04 05:30] LABS: Hematocrit 31.4 % (39.0-52.0); Hemoglobin 11.0 g/dL (13.0-18.0); Mean Corp Hgb Conc. 35.0 g/dL (33.0-37.0); Mean Corpuscular Volume 90.5 fL (80.0-94.0); Platelet Count 254 10^3/uL (130-400); Red Cell Dist. Width 12.0 % (11.5-14.5)
[2024-12-04 05:52] LABS: Blood Urea Nitrogen 14 mg/dl (9-20); Calcium 8.9 mg/dl (8.4-10.2); Carbon Dioxide 26 mmol/L (22-30); Chloride 108 mmol/L (98-107); Estimated Creatinine Clearance > 125 ml/min; Glucose 95 mg/dl (70-99); Magnesium 2.2 mg/dl (1.6-2.3); Potassium 4.4 mmol/L (3.5-5.1); Sodium 138 mmol/L (135-145); eGFR > 60.00
[2024-12-04 06:00] VITALS: BMI 32.5
[2024-12-04 06:01] LABS: INR 1.55; PT 18.8 Sec (11.4-14.6)
[2024-12-04 06:03] LABS: APTT 65.5 Sec (23.4-35.0)
--- NOTE | 2024-12-04 06:43 | W.PN.CT ---
Addendum entered and electronically signed by Nikhil Díaz MD 12/04/24 09:19:
I saw and examined the patient.
The PA's note was reviewed and I agree with the note.
Comment:
5mg of coumadin this AM
Check INR at noon
+/- additional coumadin tonight
D/C planning once INR 2-3
Continue IV heparin
Original Note:
Today's Communication / Plan
-
Plan:
-No major issues overnight. Hemodynamically and neurologically intact
-On heparin to Coumadin bridge for On-X mechanical AVR
-INR 1.51-> 1.55 after 5 mg Coumadin yesterday. Consider 7.5 mg Coumadin today
-Postop bradycardia has resolved, Cardiology requested low dose Coreg. Currently tolerating Coreg 3.125 mg BID. Amiodarone remains on hold
-Cont. current meds (ASA, heparin, Coumadin, Coreg)
-Encourage use of IS
-OOB into chair/Ambulate
-Awaiting therapeutic INR
Assessment / Plan
-
- Severe symptomatic aortic valve stenosis- s/p Surgical aortic valve replacement [25 mm On-X mechanical aortic valve]; Ascending aortic replacement [30 mm Hemashield [place] straight tube graft] by Dr. Chau on 11/29/24, pod #5
- Bicuspid aortic valve morphology, type II
- Associated ascending aortic aneurysm 4.5 cm, without rupture
- Hypertension
- Restless leg syndrome
- Acute postop blood loss anemia - stable, no transfusions
- Acute postop pulmonary insufficiency/atelectasis
- Acute postop hypovolemia with subsequent hypervolemia
- Acute postop a-fib with slow ventricular rate 40s-50s hr on 12/01- converted spontaneously to nsr on 12/02 at 1:15am, no conversion pause
Discussed patient care with: Cardiology, Nursing, Respiratory Therapy, Pharmacy and Care Team
Subjective
-
Date of Service: December 04, 2024
Pt offers no complaints, ambulating halls without difficulty
Objective Data
-
Lab Results
12/04/24 04:58
12/04/24 04:58
PT 18.8 Sec (11.4-14.6) H 12/04/24 04:58
INR 1.55 12/04/24 04:58
APTT 65.5 Sec (23.4-35.0) H 12/04/24 04:58
Vital Signs
Vital Signs
Temp Pulse Resp BP Pulse Ox
98.4 F 74 16 132/77 98
12/04/24 04:45 12/04/24 05:00 12/04/24 04:45 12/04/24 04:42 12/04/24 04:45
CT Intake/Output/Weight
12/03/24 12/03/24 12/04/24
06:59 18:59 06:59
Intake Total 38 / 556 1168 / 1396 228 / 1396
Output Total 300 / 700
Balance -262 / -144 1168 / 1396 228 / 1396
SaO2: 98 (RA)
Physical Exam
-
General: Awake, Oriented and AOx3
Cardiovascular: Regular rate & rhythm, No Murmurs, No Rub, No Gallop and Other (crisp mechanical click)
Respiratory: Decreased Breath Sounds (at bases, otherwise clear)
Sternum: Stable
Incision: Clean, Dry, Intact and Dressing Intact
Extremities: Other (+trace edema)
Data Reviewed
-
Lab Results: Results Reviewed
Medications: Active Meds Reviewed
Chest X-Ray: Report Reviewed and Image Reviewed
ECG: Report Reviewed and Image Reviewed
[2024-12-04] MEDS: TYLENOL PO ×3 (06:45→23:16)
[2024-12-04] MEDS: PROTONIX 40 MG PO (07:37)
[2024-12-04] MEDS: MAGNESIUM OXIDE 500 MG PO ×2 (07:37→20:32)
[2024-12-04] MEDS: LOW STRENGTH ASPIRIN 81 MG PO (07:37)
[2024-12-04] MEDS: VITAMIN C 500 MG PO (07:38)
[2024-12-04] MEDS: FEOSOL 325 MG PO (07:39)
[2024-12-04] MEDS: COREG 3.125 MG PO ×2 (07:39→20:32)
[2024-12-04] MEDS: COUMADIN 5 MG PO ×2 (07:40→18:35)
[2024-12-04 07:41] VITALS: BP 150/84
[2024-12-04] MEDS: SENOKOT-S PO ×2 (07:41→21:03)
[2024-12-04] MEDS: NEURONTIN PO ×3 (07:41→23:16)
[2024-12-04] MEDS: LIDOCAINE 4% PATCH TOPICAL (08:20)
[2024-12-04] MEDS: NSS IV (08:20)
--- NOTE | 2024-12-04 10:22 | W.PN.CD ---
Today's Communication / Plan
-
- Remains clinically stable.
- INR 1.55 today; receiving an extra dose of warfarin 5 mg this a.m.
Impression / Plan
-
Impression/Plan: 48 y/o male with bicuspid aortic valve, aortic root/ascending aorta dilation with severe , hypertension, & lumbar disc disease admitted for elective SAVR and ascending aortic replacement.
Outpatient vocational childcare teacher: Dr. Mark Russo
#Bicuspid aortic valve with severe aortic stenosis:
- S/P SAVR (#25 On-X mechanical aortic valve, serial number [id number]) with Dr. Chau, 11/29/2024.
- Remains clinically stable.
- Warfarin for anticoagulation. On IV heparin currently. Initial INR goal of 2-3. INR goal can be decreased to 1.5-2.0 in 3 months (with concurrent aspirin) if there is no other indication for a higher INR.
- INR 1.55 today; receiving an extra dose of warfarin 5 mg this a.m.
#Ascending aortic dilation
-S/P Ascending aorta replacement (#30 Hemashield [place] straight tube graft, serial #[id number]) with Dr. Chau, 11/29/2024.
-Coreg added for BP/HR control
#Hypertension
- Stable/fairly controlled.
- Continue Coreg
#PAF
-New diagnosis, likely paroxysmal/post operative.
-Currently in NSR.
-Rate/rhythm control with low dose carvedilol.
-CHADS2-Vasc = 1 (HTN).
-Therapeutic anticoagulation due to mSAVR with warfarin. Goal INR 2-3 for the next 3 months.
-Outpatient 2-week monitor sometime in the first three months post op recommend to assess any residual burden of atrial fibrillation and need to adjust INR window.
#Fasting hyperglycemia
-New diagnosis.
-HgbA1c 5.2%.
Subjective/Interval History:
No major events overnight. No cardiac complaints today.
DATA:
CT Surgery, 11/29/2024:
Procedure(s) Performed:
1. Standard sternotomy with aortic and right atrial cannulation
2. Surgical aortic valve replacement [25 mm mechanical aortic valve]
3. Ascending aortic replacement [30 mm straight tube graft]
4. Transesophageal echocardiography
5. Placement of temporary ventricular pacing wire
Transthoracic echocardiogram, 10/19/2024:
Suboptimal due to poor acoustic windows overall, there is normal left
ventricular systolic function with an ejection fraction of 60 to 65% with grade
1 diastolic dysfunction.
Normal chamber sizes.
Aortic valve is thickened, calcified and restricted appears bicuspid with a
mean gradient of 55.8 mmHg and a peak gradient of 73.5 mmHg with a
calculated aortic valve area 0.72 cm sq. These findings are consistent with
severe aortic stenosis. There is no aortic regurgitation.
There is trace mitral and tricuspid regurgitation.
No pulmonary hypertension.
No pericardial effusion.
Cardiac catheterizationn 11/22/2024:
1. No coronary artery disease in a right dominant system.
Cardiac CT, 10/31/2024:
IMPRESSION:
Measurements for proposed SAVR procedure, to be added as a separate addendum.
Fusiform aneurysmal dilatation of the ascending thoracic aorta measuring up to 4.5 cm.
Minimal focal infectious/inflammatory bronchiolitis change in the right upper lobe. No dedicated imaging follow-up indicated.
Physical Exam
Vital Signs/Labs
Vital Signs
Temp Pulse Resp BP Pulse Ox
98.1 F 115 20 150/84 95
12/04/24 07:35 12/04/24 08:00 12/04/24 07:35 12/04/24 07:41 12/04/24 07:35
12/03/24 12/04/24 12/05/24
06:59 06:59 06:59
Actual Weight 108.3 kg 108.7 kg
12/04/24 04:58
12/04/24 04:58
PT 18.8 Sec (11.4-14.6) H 12/04/24 04:58
INR 1.55 12/04/24 04:58
APTT 65.5 Sec (23.4-35.0) H 12/04/24 04:58
Magnesium 2.2 mg/dl (1.6-2.3) 12/04/24 04:58
Physical Exam
Constitutional: No acute distress and Comfortable
EENT: Anicteric
Cardiovascular: Rhythm & rate is regular, Pedal edema is absent, Systolic murmur absent and S1S2 is normal
Respiratory: Respiratory effort normal and Lungs clear to auscul.
GI: Soft
Neuro/Psych: AO x 3
Other: Skin (Warm, dry, intact)
Data Reviewed
-
Date of Service: December 04, 2024
EKG: Tracing Personally Visualized and interpreted (Telemetry: Sinus rhythm, occasional PVCs)
Medical Tests (PFT, Pathology etc): Discussed with Physician, Discussed with Nurse and Discussed with Patient
Labs: Labs Reviewed by me
[2024-12-04 11:52] VITALS: BP 138/85
[2024-12-04] MEDS: HEPARIN 25000 UNITS/250 ML IV ×2 (12:36→23:19)
[2024-12-04 13:40] LABS: INR 1.68; PT 20.0 Sec (11.4-14.6)
[2024-12-04 13:41] LABS: APTT 62.1 Sec (23.4-35.0)
[2024-12-04 15:55] VITALS: BP 134/75
[2024-12-04 18:45] VITALS: BP 162/93
--- NOTE | 2024-12-04 19:53 | PTCARENOTE ---
Assumed care of the pt @ 1900. Pt is AAOx3 with family in room. SR with 1st degree A/V block Heparin gtt infusing @ 2200 units. Mid-sternal incision JENNIFER c/d/i. Plan of care discussed with patient. Call dubon within reach.
[2024-12-04 20:55] LABS: APTT 126.8 Sec (23.4-35.0)
[2024-12-04] MEDS: FLEXERIL 10 MG PO (23:16)
[2024-12-04 23:18] VITALS: BP 137/76
[2024-12-05 04:27] VITALS: BP 133/72
[2024-12-05 04:40] VITALS: BMI 32.1
[2024-12-05 05:23] LABS: INR 2.14; PT 24.0 Sec (11.4-14.6)
[2024-12-05 05:24] LABS: APTT 129.3 Sec (23.4-35.0)
[2024-12-05] MEDS: TYLENOL PO (05:52)
--- NOTE | 2024-12-05 06:13 | W.PN.CT ---
Today's Communication / Plan
-
Plan:
-No major issues overnight. Hemodynamically and neurologically intact
-On heparin to Coumadin bridge for On-X mechanical AVR. Will stop heparin gtt
-INR 2.14 this AM
-Postop bradycardia has resolved, Cardiology requested low dose Coreg. Currently tolerating Coreg 3.125 mg BID. Amiodarone remains on hold
-Cont. current meds (ASA, Coumadin, Coreg)
-Encourage use of IS
-OOB into chair/Ambulate
-Home today
Assessment / Plan
-
- Severe symptomatic aortic valve stenosis- s/p Surgical aortic valve replacement [25 mm On-X mechanical aortic valve]; Ascending aortic replacement [30 mm Hemashield [place] straight tube graft] by Dr. Chau on 11/29/24, pod #6
- Bicuspid aortic valve morphology, type II
- Associated ascending aortic aneurysm 4.5 cm, without rupture
- Hypertension
- Restless leg syndrome
- Acute postop blood loss anemia - stable, no transfusions
- Acute postop pulmonary insufficiency/atelectasis
- Acute postop hypovolemia with subsequent hypervolemia
- Acute postop a-fib with slow ventricular rate 40s-50s hr on 12/01- converted spontaneously to nsr on 12/02 at 1:15am, no conversion pause
Discussed patient care with: Cardiology, Nursing, Respiratory Therapy, Pharmacy and Care Team
Subjective
-
Date of Service: December 05, 2024
Pt offers no complaints, ambulating halls without complication
Objective Data
-
Lab Results
12/04/24 04:58
12/04/24 04:58
PT Cancelled 12/05/24 04:51
INR Cancelled 12/05/24 04:51
APTT 129.3 Sec (23.4-35.0) H 12/05/24 04:42
Vital Signs
Vital Signs
Temp Pulse Resp BP Pulse Ox
98.7 F 70 18 133/72 98
12/05/24 04:31 12/05/24 04:31 12/05/24 04:31 12/05/24 04:27 12/05/24 04:31
CT Intake/Output/Weight
12/04/24 12/04/24 12/05/24
06:59 18:59 06:59
Intake Total 228 / 1396
Balance 228 / 1396
SaO2: 98 (RA)
Physical Exam
-
General: Awake, Oriented and AOx3
Cardiovascular: Regular rate & rhythm, No Murmurs and No Gallop
Respiratory: Decreased Breath Sounds (at bases, otherwise clear)
Sternum: Stable
Incision: Clean, Dry, Intact and Dressing Intact
Extremities: Other (+trace edema)
Data Reviewed
-
Lab Results: Results Reviewed
Medications: Active Meds Reviewed
Chest X-Ray: Report Reviewed and Image Reviewed
ECG: Report Reviewed and Image Reviewed
[2024-12-05 07:40] VITALS: BP 129/83
--- NOTE | 2024-12-05 07:56 | W.DCSUMMARY ---
Discharge Summary
Discharge Data
Date of Admission: 11/29/24
Date of Discharge: 12/05/24
-
Pending Results: No
Hospital Course
Primary care physician: Adrianna Brar
Outpatient ear machine operator: Mark Russo
Inpatient consultants: [facility] Cardiology, pulmonary taxation accountant
Procedures:
1. Aortic valve replacement and ascending aorta replacement
Primary Diagnosis:
1. Aortic valve stenosis with bicuspid morphology and associated aortic aneurysm of the ascending thoracic aorta
Secondary Diagnoses:
1. Hypertension
2. Restless leg syndrome
3. lumbar disc disease s/p surgery 04/2024
HPI: 48-year-old male was electively admitted on 11/29/2024 for aortic valve replacement and ascending aorta replacement due to bicuspid aortic valve with aortic stenosis and ascending aorta measuring 4.5 cm
Hospital course: Patient was taken to the operating room and underwent an aortic valve replacement [#25 mm On-X mechanical aortic valve], ascending aortic replacement [#30 mm straight tube graft] by Dr. Costa Chau. Please see operative note for
further details. Patient received no intraoperative blood products and returned to CVICU on Precedex. Patient was extubated 1330 the day of surgery. Postop hypertension was treated with nitroglycerin and metoprolol was increased to 25 mg twice
daily. On postoperative day 1, Coumadin was initiated for mechanical valve with goal INR 2�3. Postoperative day #2, metoprolol was changed to Coreg to better control blood pressure. Chest tubes and wires were discontinued. Temporary epicardial
ventricular wires were removed on postoperative day #3. IV heparin was initiated and his INR remained subtherapeutic. Right IJ was removed. On postoperative day #4, INR increased to 1.5. INR only increased to 1.55 on postoperative day #5,
therefore Coumadin 5mg was given in the morning with recheck at 12 noon showing INR of 1.67. Additional Coumadin 2.5 mg was given. Postoperative day #6, INR was therapeutic at 2.14. IV heparin was discontinued and patient will be discharged home
on Coumadin 5 mg. Patient will be followed by transitional RN team and INR recheck scheduled for 12/07/2024. Coumadin dosing will be managed by Dr. Brown
Home medication changes:
New:
Coreg for HTN
Aspirin/Coumadin for mechanical AVR (goal INR 2-3)
Discharge Plan
-
Patient Disposition: Home (Routine Discharge)
Discharge Diagnosis/Procedures: AVR #25mm On-X, ascending aorta replacement (11/29/24)
Condition: Good
Diet: Low Cholesterol and Low Sodium
Activity: No strenuous activity
Driving Restrictions: Not until seen by your Dr
Bathing Restrictions: OK to Shower
Other Services: Cardiac Rehab
Activity Restrictions/Additional Instructions:
Please call to make appointments for Phase II Cardiac Rehab:
1) Albert Max:
[address] [place]
[phone]
Referrals:
CT Transitional Care Nurse [Outside] - in one to two days
Referral Note:
The Cardiothoracic Transitional Care Nurse will call you to set up a visit in 1-2 days.
Chad Curry MD [Active, Pulmonary Medicine] - in six weeks
Odessa Preciado CRNP [Specified Professional Personl, Cardiology] - 01/10/25 11:00 am
Adrianna Brar DO [Family Provider] - in four to six weeks
Referral Note: Please make an appointment in four to six weeks.
Costa Chau MD [Active, Cardiac Surgery] - 01/02/25 2:00 pm
Prescriptions:
New
aspirin 81 mg Tablet,Chewable
81 mg PO DAILY Qty: 0 0RF
carvedilol 3.125 mg Tablet
3.125 mg PO BID Qty: 60 2RF
pantoprazole 40 mg Tablet,Delayed Release (Dr/Ec)
40 mg PO DAILY Qty: 30 2RF
gabapentin 100 mg Capsule
100 mg PO TID Qty: 30 0RF
oxycodone 5 mg Tablet
5 mg PO Q4HPRN PRN (Reason: severe pain) Qty: 10 0RF
warfarin [Jantoven] 5 mg tablet
5 mg PO QPM Qty: 30 2RF
Continued
acetaminophen-codeine 300-30 mg Tablet
1 tab PO PRN PRN (Reason: Pain)
magnesium
1 tab PO DAILY
vitamin E52-qqsoh acid
1 tab PO DAILY
Discontinued
etodolac 400 mg Tablet
400 mg PO Q12H PRN (Reason: pain)
Discharge Orders:
Discharge Patient (As Directed); Ordered 12/05/24
Ordered By: Abbey Fraser
Care Plan Goals
Care Plan Goals:
Problem: Readiness for enhanced knowledge related to diagnosis and treatment plan
Goal: Understand your diagnosis and treatment plan needs, including medications if applicable.
Instructions: Know your diagnosis, underlying causes and treatment plan options, including medications if applicable. Consult with your health care team to learn about your diagnosis and treatment plan, including medications if applicable.
Discharge Date and Time
Print Language: TAJIK
--- NOTE | 2024-12-05 07:56 | W.PN.CD ---
Today's Communication / Plan
-
- Off Heparin
- OK for dischage home
Impression / Plan
-
Impression/Plan: 48 y/o male with bicuspid aortic valve, aortic root/ascending aorta dilation with severe , hypertension, & lumbar disc disease admitted for elective SAVR and ascending aortic replacement.
Outpatient metalsmith apprentice: Dr. Mark Russo
#Bicuspid aortic valve with severe aortic stenosis:
- S/P SAVR (#25 On-X mechanical aortic valve, serial number [id number]) with Dr. Chau, 11/29/2024.
- Remains clinically stable.
- Warfarin for anticoagulation. Initial INR goal of 2-3. INR goal can be decreased to 1.5-2.0 in 3 months (with concurrent aspirin) if there is no other indication for a higher INR.
- INR 2.14 today; at goal. Off Heparin now.
#Ascending aortic dilation
-S/P Ascending aorta replacement (#30 Hemashield [place] straight tube graft, serial #[id number]) with Dr. Chau, 11/29/2024.
-Coreg added for BP/HR control
#Hypertension
- Stable/fairly controlled.
- Continue Coreg
#PAF
-New diagnosis, likely paroxysmal/post operative.
-Currently in NSR.
-Rate/rhythm control with low dose carvedilol.
-CHADS2-Vasc = 1 (HTN).
-Therapeutic anticoagulation due to mSAVR with warfarin. Goal INR 2-3 for the next 3 months.
-Outpatient 2-week monitor sometime in the first three months post op recommend to assess any residual burden of atrial fibrillation and need to adjust INR window.
#Fasting hyperglycemia
-New diagnosis.
-HgbA1c 5.2%.
Subjective/Interval History:
No major events overnight. No cardiac complaints today.
DATA:
CT Surgery, 11/29/2024:
Procedure(s) Performed:
1. Standard sternotomy with aortic and right atrial cannulation
2. Surgical aortic valve replacement [25 mm mechanical aortic valve]
3. Ascending aortic replacement [30 mm straight tube graft]
4. Transesophageal echocardiography
5. Placement of temporary ventricular pacing wire
Transthoracic echocardiogram, 10/19/2024:
Suboptimal due to poor acoustic windows overall, there is normal left
ventricular systolic function with an ejection fraction of 60 to 65% with grade
1 diastolic dysfunction.
Normal chamber sizes.
Aortic valve is thickened, calcified and restricted appears bicuspid with a
mean gradient of 55.8 mmHg and a peak gradient of 73.5 mmHg with a
calculated aortic valve area 0.72 cm sq. These findings are consistent with
severe aortic stenosis. There is no aortic regurgitation.
There is trace mitral and tricuspid regurgitation.
No pulmonary hypertension.
No pericardial effusion.
Cardiac catheterizationn 11/22/2024:
1. No coronary artery disease in a right dominant system.
Cardiac CT, 10/31/2024:
IMPRESSION:
Measurements for proposed SAVR procedure, to be added as a separate addendum.
Fusiform aneurysmal dilatation of the ascending thoracic aorta measuring up to 4.5 cm.
Minimal focal infectious/inflammatory bronchiolitis change in the right upper lobe. No dedicated imaging follow-up indicated.
Physical Exam
Vital Signs/Labs
Vital Signs
Temp Pulse Resp BP Pulse Ox
98.7 F 70 18 133/72 98
12/05/24 04:31 12/05/24 04:31 12/05/24 04:31 12/05/24 04:27 12/05/24 06:22
12/04/24 12/05/24 12/06/24
06:59 06:59 06:59
Actual Weight 108.7 kg 107.4 kg
12/04/24 04:58
12/04/24 04:58
PT Cancelled 12/05/24 04:51
INR Cancelled 12/05/24 04:51
APTT 129.3 Sec (23.4-35.0) H 12/05/24 04:42
Magnesium 2.2 mg/dl (1.6-2.3) 12/04/24 04:58
Physical Exam
Constitutional: No acute distress and Comfortable
EENT: Anicteric and Moist mucous membranes
Cardiovascular: Rhythm & rate is regular, Pedal edema is absent and JVD pressure is normal
Respiratory: Respiratory effort normal, Wheeze Absent and Crackles Absent
GI: Soft, Non tender and Normal bowel sounds
Neuro/Psych: Alert, Oriented, AO x 3 and Motor deficits absent
Data Reviewed
-
Date of Service: December 05, 2024
Medical Decision Making: Reviewed Test Results, Test Interpretation and Review of Case with other Provider
EKG: Tracing Personally Visualized and interpreted
Echo: Report Reviewed by me
Labs: Labs Reviewed by me
Old Records: Reviewed
[2024-12-05 08:19] VITALS: BP 130/74
[2024-12-05] MEDS: COREG 3.125 MG PO (08:39)
[2024-12-05] MEDS: MAGNESIUM OXIDE 500 MG PO (08:39)
[2024-12-05] MEDS: LOW STRENGTH ASPIRIN 81 MG PO (08:39)
[2024-12-05] MEDS: VITAMIN C 500 MG PO (08:40)
[2024-12-05] MEDS: FEOSOL 325 MG PO (08:40)
[2024-12-05] MEDS: LIDOCAINE 4% PATCH TOPICAL (08:44)
[2024-12-05] MEDS: NEURONTIN PO (08:45)
[2024-12-05] MEDS: PROTONIX PO (08:45)
[2024-12-05] MEDS: SENOKOT-S PO (08:46)
[2024-12-05] MEDS: NSS IV (09:15)
[2024-12-05] MEDS: PROTONIX 40 MG PO (10:24)
--- NOTE | 2024-12-05 10:45 | PTCARENOTE ---
PT reviewed and verbalized understanding of all discharge instructions, upcoming medical appointments, medications & next dose; vitals taken and VSS; spouse at bedside and accompanied RN and patient to awaiting car.
== END 2024-12-05 11:05 | disposition home or self-care (01) | DRG 219 ==
LOC: IVU 05:01
PROVIDERS: Internal Medicine; Nurse Practitioner; Physician Assistant Medical; ADMITTING PHYSICIAN Thoracic Surgery (Cardiothoracic Vascular Surgery); CONSULT PHYSICIAN Internal Medicine; FAMILY PHYSICIAN Family Medicine
PROC: 5A1221Z Performance of Cardiac Output, Continuous (ICD-10-PCS; 2024-11-29)
PROC: 02RX0JZ Replacement of Thoracic Aorta, Ascending/Arch with Synthetic Substitute, Open Approach (ICD-10-PCS; 2024-11-29)
PROC: 02RF0JZ Replacement of Aortic Valve with Synthetic Substitute, Open Approach (ICD-10-PCS; 2024-11-29)
DX: I35.0 Nonrheumatic aortic (valve) stenosis (principal); J95.1 Acute pulmonary insufficiency following thoracic surgery; D62 Acute posthemorrhagic anemia; J98.11 Atelectasis; I71.21 Aneurysm of the ascending aorta, without rupture; Q23.81 Bicuspid aortic valve; I10 Essential (primary) hypertension; G25.81 Restless legs syndrome; I97.3 Postprocedural hypertension; E86.1 Hypovolemia; E87.70 Fluid overload, unspecified; I48.0 Paroxysmal atrial fibrillation; R73.9 Hyperglycemia, unspecified; Y83.1 Surgical operation with implant of artificial internal device as the cause of abnormal reaction of the patient, or of later complication, without mention of misadventure at the time of the procedure; Z79.899 Other long term (current) drug therapy; Z82.49 Family history of ischemic heart disease and other diseases of the circulatory system
CPT/HCPCS: 36415; 71045; 71046; 80048; 80053; 81003; 81015; 82248; 82330; 82565; 82805; 82810; 82947; 82962; 83036; 83735; 84132; 84302; 84520; 85014; 85018; 85025; 85027; 85049; 85610; 85730; 86850; 86900; 86901; 86920; 87070; 87086; 88305; 88311; 93005; C1713; C1768; J2916